=== PATIENT | male | born 1970 | race Caucasian/White ===

== ENCOUNTER 2020-08-01 08:04 | Emergency (ER) | payer MEDICARE ==
[~2020-08-01] VITALS: Ht 188 cm; Wt 127.2 kg
--- NOTE | 2020-08-01 08:20 | ED.ADGEN ---
Past Medical History Past Medical History: Diabetes-Type II General Adult EDM: Chief Complaint: NAUSEA/VOMITING/DIARRHEA HPI: HPI: Patient is a 49-year-old male who arrives ambulatory to the emergency department complaining of nausea and vomiting with occasional diarrhea. Patient states that this has been ongoing now for 3 days. Patient states he has a history of gastroparesis and these episodes are not uncommon for him. Patient states he is a difficulty moving food through his gut during this time and had numerous episodes of vomiting. Despite this the patient denies any fevers. He further denies any abdominal pain without vomiting. Additionally he denies any history of cough, shortness of air or chest pain. He is awake, alert and uncomfortable appearing. Review of Systems: Review of Systems: Constitutional: Denies fever or chills. [] Eyes: Denies change in visual acuity. [] HENT: Denies nasal congestion or sore throat. [] Respiratory: Denies cough or shortness of breath. [] Cardiovascular: Denies chest pain or edema. [] GI: Reports nausea with vomiting. Denies abdominal pain, diarrhea, bloody sto ols. [] : Denies dysuria. [] Musculoskeletal: Denies back pain or joint pain. [] Integument: Denies rash. [] Neurologic: Denies headache, focal weakness or sensory changes. [] Endocrine: Denies polyuria or polydipsia. [] Lymphatic: Denies swollen glands. [] Psychiatric: Denies depression or anxiety. [] Family History: Family History: Noncontributory Current Medications: Current Medications Medications (Trade) Dose Ordered Sig/Cr Start Time Stop Time Status Last Admin Dose Admin Diphenhydramine HCl (Benadryl) 50 mg 1X ONCE 08/01/20 08:30 08/01/20 08:31 DC 08/01/20 08:33 50 MG Metoclopramide HCl (Reglan Vial) 10 mg 1X ONCE 08/01/20 08:30 08/01/20 08:31 DC 08/01/20 08:36 10 MG Pantoprazole Sodium (PROTONIX VIAL for IV PUSH) 40 mg 1X ONCE 08/01/20 08:30 08/01/20 08:31 DC 08/01/20 08:40 40 MG Sodium Chloride 1,000 ml @ 1,000 mls/hr 1X ONCE 08/01/20 08:30 08/01/20 09:29 DC 08/01/20 08:32 1,000 MLS/HR Allergies: Allergies: Allergies Coded Allergies Type Severity Reaction Last Updated Verified aspirin Allergy Severe STOMACH BLEEDING 08/01/20 Yes Physical Exam: PE: Constitutional: Uncomfortable appearing and morbidly obese. Well developed, well nourished, non-toxic appearance. [] HENT: Normocephalic, atraumatic, bilateral external ears normal, oropharynx moist, no oral exudates, nose normal. [] Eyes: PERRLA, EOMI, conjunctiva normal, no discharge. [] Neck: Normal range of motion, no tenderness, supple, no stridor. [] Cardiovascular:Heart rate regular rhythm, no murmur [] Lungs & Thorax: Bilateral breath sounds clear to auscultation [] Abdomen: Bowel sounds normal, soft, no tenderness, no masses, no pulsatile masses. [] Skin: Warm, dry, no erythema, no rash. [] Back: No tenderness, no CVA tenderness. [] Extremities: No tenderness, no cyanosis, no clubbing, ROM intact, no edema. [] Neurologic: Alert and oriented X 3, normal motor function, normal sensory function, no focal deficits noted. [] Psychologic: Affect normal, judgement normal, mood normal. [] Current Patient Data: Labs: Laboratory Tests Test 08/01/20 08:25 White Blood Count 17.3 x10^3/uL (4.0-11.0) H Red Blood Count 5.21 x10^6/uL (4.30-5.70) Hemoglobin 15.3 g/dL (13.0-17.5) Hematocrit 43.4 % (39.0-53.0) Mean Corpuscular Volume 83 fL (79-100) Mean Corpuscular Hemoglobin 29 pg (25-35) Mean Corpuscular Hemoglobin Concent 35 g/dL (31-37) Red Cell Distribution Width 13.5 % (11.5-14.5) Platelet Count 300 x10^3/uL (140-400) Neutrophils (%) (Auto) 88 % (31-73) H Lymphocytes (%) (Auto) 6 % (24-48) L Monocytes (%) (Auto) 6 % (0-9) Eosinophils (%) (Auto) 0 % (0-3) Basophils (%) (Auto) 1 % (0-3) Neutrophils # (Auto) 15.1 x10^3/uL (1.8-7.7) H Lymphocytes # (Auto) 1.0 x10^3/uL (1.0-4.8) Monocytes # (Auto) 1.1 x10^3/uL (0.0-1.1) Eosinophils # (Auto) 0.0 x10^3/uL (0.0-0.7) Basophils # (Auto) 0.1 x10^3/uL (0.0-0.2) Platelet Estimate Pending Sodium Level 139 mmol/L (136-145) Potassium Level 3.8 mmol/L (3.5-5.1) Chloride Level 100 mmol/L (98-107) Carbon Dioxide Level 24 mmol/L (21-32) Anion Gap 15 (6-14) H Blood Urea Nitrogen 21 mg/dL (8-26) Creatinine 1.0 mg/dL (0.7-1.3) Estimated GFR (Cockcroft-Gault) 78.8 BUN/Creatinine Ratio 21 (6-20) H Glucose Level 290 mg/dL (70-99) H Calcium Level 9.0 mg/dL (8.5-10.1) Total Bilirubin 1.1 mg/dL (0.2-1.0) H Aspartate Amino Transferase (AST) 46 U/L (15-37) H Alanine Aminotransferase (ALT) 47 U/L (16-63) Alkaline Phosphatase 90 U/L (46-116) Total Protein 7.8 g/dL (6.4-8.2) Albumin 4.5 g/dL (3.4-5.0) Albumin/Globulin Ratio 1.4 (1.0-1.7) Lipase 56 U/L (73-393) L Laboratory Tests 08/01/20 08:25 Laboratory Tests 08/01/20 08:25 Vital Signs: Vital Signs Date Time Temp Pulse Resp B/P (MAP) Pulse Ox O2 Delivery O2 Flow Rate FiO2 08/01/20 08:19 99.0 103 20 184/97 (126) 96 Room Air 99.0 EKG: EKG: [] Heart Score: C/O Chest Pain: No Risk Factors: Risk Factors: DM, Current or recent (<one month) smoker, HTN, HLP, family history of CAD, obesity. Risk Scores: Score 0 - 3: 2.5% MACE over next 6 weeks - Discharge Home Score 4 - 6: 20.3% MACE over next 6 weeks - Admit for Clinical Observation Score 7 - 10: 72.7% MACE over next 6 weeks - Early Invasive Strategies Radiology/Procedures: Radiology/Procedures: [] Course & Med Decision Making: Course & Med Decision Making Pertinent Labs and Imaging studies reviewed. (See chart for details) [] Dragon Disclaimer: Dragon Disclaimer: This electronic medical record was generated, in whole or in part, using a voice recognition dictation system. Departure Departure Impression: Primary Impression: History of diabetic gastroparesis Additional Impressions: Acute prerenal azotemia Hyperglycemia due to diabetes mellitus Nausea and vomiting Disposition: 01 HOME / SELF CARE / HOMELESS Condition: IMPROVED Patient Instructions: Dehydration, Adult, Gastroparesis, Nausea and Vomiting Additional Instructions: The patient is awake, alert and in no acute distress. The patient reports he is feeling much better and desires discharge. I did offer him another liter fluid given his acute dehydration however he states he believes he can go home and to lerate fluids. I advised him to return with any fevers, new pain or intractable vomiting/diarrhea. The patient understands and has agreed to return as needed. He is nontoxic-appearing and resting comfortably now. He is stable for discharge. Problem Qualifiers BRANDY DACOSTA DO Aug 01, 2020 08:20
[2020-08-01] MEDS: IV NORMAL SALINE 1000ML BAG 1,000 ML IV ONE (08:32)
[2020-08-01] MEDS: diphenhydrAMINE 50 MG/ML VIAL IVP ONE (08:33)
[2020-08-01] MEDS: METOCLOPRAMIDE HCL 10 MG/2 ML VIAL. IVP ONE (08:36)
[2020-08-01] MEDS: PANTOPRAZOLE IV PUSH 40 MG VIAL. IVP ONE (08:40)
[2020-08-01 08:42] LABS: BASO # 0.1 x10^3/uL (0.0-0.2); BASO % 1 % (0-3); EOS % 0 % (0-3); HEMATOCRIT 43.4 % (39.0-53.0); HEMOGLOBIN 15.3 g/dL (13.0-17.5); LYMPH % 6 % (24-48); MEAN CORPUSCULAR HEMOGLOBIN 29 pg (25-35); MEAN CORPUSCULAR HGB CONC 35 g/dL (31-37); MEAN CORPUSCULAR VOLUME 83 fL (79-100); MONO # 1.1 x10^3/uL (0.0-1.1); MONO % 6 % (0-9); NEUT # 15.1 x10^3/uL (1.8-7.7); NEUT % 88 % (31-73); PLATELET COUNT 300 x10^3/uL (140-400); RED BLOOD COUNT 5.21 x10^6/uL (4.30-5.70); RED CELL DISTRIBUTION WIDTH 13.5 % (11.5-14.5); WHITE BLOOD COUNT 17.3 x10^3/uL (4.0-11.0)
[2020-08-01 08:45] LABS: GFR 78.8; POTASSIUM 3.8 mmol/L (3.5-5.1)
[2020-08-01 08:51] LABS: ALBUMIN 4.5 g/dL (3.4-5.0); ALBUMIN/GLOBULIN RATIO 1.4 (1.0-1.7); TOTAL BILIRUBIN 1.1 mg/dL (0.2-1.0); TOTAL PROTEIN 7.8 g/dL (6.4-8.2)
[2020-08-01 09:16] VITALS: BP 157/78
[2020-08-01 12:58] LABS: % ATYL 1 % (0-0); % BANDS 1 % (0-9); % LYMPHS 6 % (24-48); % MONOS 6 % (0-10); % SEGS 86 % (35-66); PLT ESTIMATE ADEQUATE (ADEQUATE)
[2020-08-02] MEDS ORDERED: METO5TAB55 PO (07:26)
[2020-08-02] MEDS ORDERED: DIPH25CA58 PO (07:26)
[2020-08-02] MEDS ORDERED: GLIP5TAB10 PO (07:26)
== END 2020-08-01 09:56 | disposition home or self-care (01) ==
LOC: ER 08:04
DX: E11.43 Type 2 diabetes mellitus with diabetic autonomic (poly)neuropathy (principal); K31.84 Gastroparesis; E11.65 Type 2 diabetes mellitus with hyperglycemia; R79.89 Other specified abnormal findings of blood chemistry; R11.2 Nausea with vomiting, unspecified
CPT/HCPCS: 36415; 80053; 83690; 85007; 85025; 96361; 96374; 96375; 99284; C9113; J1200; J2765; J7030

== ENCOUNTER 2020-08-01 18:22 | Inpatient (IN) | payer MEDICARE ==
[~2020-08-01] VITALS: Ht 193 cm; Wt 133.2 kg
[2020-08-01] MEDS ORDERED: PANTOPRAZOLE IV PUSH 40 MG VIAL. IVP ONE (19:15)
[2020-08-01] MEDS ORDERED: IV NORMAL SALINE 1000ML BAG 1,000 ML IV ONE ×2 (19:15→22:00)
[2020-08-01] MEDS ORDERED: METOCLOPRAMIDE HCL 10 MG/2 ML VIAL. IVP ONE (19:15)
[2020-08-01] MEDS ORDERED: diphenhydrAMINE 50 MG/ML VIAL IVP ONE (19:15)
[2020-08-01 19:18] LABS: BASO % 0 % (0-3); EOS % 0 % (0-3); HEMATOCRIT 42.7 % (39.0-53.0); LYMPH # 1.3 x10^3/uL (1.0-4.8); LYMPH % 8 % (24-48); MEAN CORPUSCULAR HEMOGLOBIN 29 pg (25-35); MEAN CORPUSCULAR HGB CONC 35 g/dL (31-37); MEAN CORPUSCULAR VOLUME 83 fL (79-100); MONO # 1.2 x10^3/uL (0.0-1.1); MONO % 8 % (0-9); NEUT % 85 % (31-73); PLATELET COUNT 305 x10^3/uL (140-400); RED BLOOD COUNT 5.14 x10^6/uL (4.30-5.70); RED CELL DISTRIBUTION WIDTH 13.8 % (11.5-14.5); WHITE BLOOD COUNT 16.5 x10^3/uL (4.0-11.0)
[2020-08-01 19:29] LABS: CALCIUM 8.9 mg/dL (8.5-10.1); CREATININE 1.1 mg/dL (0.7-1.3); GFR 70.6; POTASSIUM 3.7 mmol/L (3.5-5.1)
[2020-08-01 19:35] LABS: ALBUMIN 4.4 g/dL (3.4-5.0); ALBUMIN/GLOBULIN RATIO 1.3 (1.0-1.7); TOTAL PROTEIN 7.7 g/dL (6.4-8.2)
--- NOTE | 2020-08-01 21:23 | PHYS DOC ---
Past Medical History Past Medical History: Diabetes-Type II Additional Past Medical Histor: GASTROPORESIS Past Surgical History: Cholecystectomy Smoking Status: Never Smoker Alcohol Use: None General Adult EDM: Chief Complaint: NAUSEA/VOMITING/DIARRHEA HPI: HPI: Patient is a 49 year old male with past medical history of gastroparesis presents with a chief complaint of nausea vomiting and abdominal discomfort. Patient states onset of symptoms 3 days ago. Patient states he is unable to keep any fluids or his medications down. Patient was evaluated and discharge from this emergency department earlier today. Review of Systems: Review of Systems: Review of systems: Constitutional symptoms- No fever, no chills. Eyes- No Discharge, No Visual Loss Respiratory symptoms- No shortness of breath, No wheezing, No Dyspnea on Exertion Cardiovascular Systems; No chest pain, No Palpitations, No syncope Gastrointestinal symptoms: Positive abdominal pain, Positive nausea, Positive vomiting no diarrhea. Genitourinary symptoms: No dysuria. Musculoskeletal symptoms: No back pain No extremity pain. NEUROLOGICAL Symptoms: No headache, no generalized weakness; No focal Weakness Heart Score: C/O Chest Pain: N/A Risk Factors: Risk Factors: DM, Current or recent (<one month) smoker, HTN, HLP, family history of CAD, obesity. Risk Scores: Score 0 - 3: 2.5% MACE over next 6 weeks - Discharge Home Score 4 - 6: 20.3% MACE over next 6 weeks - Admit for Clinical Observation Score 7 - 10: 72.7% MACE over next 6 weeks - Early Invasive Strategies Current Medications: Current Medications Medications (Trade) Dose Ordered Sig/Cr Start Time Stop Time Status Last Admin Dose Admin Diphenhydramine HCl (Benadryl) 50 mg 1X ONCE 08/01/20 19:15 08/01/20 19:16 DC 08/01/20 19:23 50 MG Metoclopramide HCl (Reglan Vial) 10 mg 1X ONCE 08/01/20 19:15 08/01/20 19:16 DC 08/01/20 19:23 10 MG Pantoprazole Sodium (PROTONIX VIAL for IV PUSH) 40 mg 1X ONCE 08/01/20 19:15 08/01/20 19:16 DC 08/01/20 19:23 40 MG Sodium Chloride 1,000 ml @ 1,000 mls/hr 1X ONCE 08/01/20 19:15 08/01/20 20:14 DC 08/01/20 19:21 1,000 MLS/HR Allergies: Allergies: Allergies Coded Allergies Type Severity Reaction Last Updated Verified aspirin Allergy Severe STOMACH BLEEDING 08/01/20 Yes Physical Exam: PE: General: alert, no acute distress. Skin: warm, dry and intact. Head:: Normocephalic, atraumatic. Neck: Trachea midline. Eyes: EOMI, Normal conjunctiva, No drainage CARDIOVASCULAR: Regular rate and rhythm RESPIRATORY: No respiratory distress Back: Full range of motion. MUSCULOSKELETAL: Full range of motion of bilateral upper and lower extremities. GASTROINTESTINAL: Abdomen soft without rebound or guarding. NEUROLOGICAL: Alert and noted to person, place and time. No neurological deficits observed Psychiatric: Cooperative. Normal judgment Current Patient Data: Labs: Laboratory Tests Test 08/01/20 18:40 White Blood Count 16.5 x10^3/uL (4.0-11.0) H Red Blood Count 5.14 x10^6/uL (4.30-5.70) Hemoglobin 15.0 g/dL (13.0-17.5) Hematocrit 42.7 % (39.0-53.0) Mean Corpuscular Volume 83 fL (79-100) Mean Corpuscular Hemoglobin 29 pg (25-35) Mean Corpuscular Hemoglobin Concent 35 g/dL (31-37) Red Cell Distribution Width 13.8 % (11.5-14.5) Platelet Count 305 x10^3/uL (140-400) Neutrophils (%) (Auto) 85 % (31-73) H Lymphocytes (%) (Auto) 8 % (24-48) L Monocytes (%) (Auto) 8 % (0-9) Eosinophils (%) (Auto) 0 % (0-3) Basophils (%) (Auto) 0 % (0-3) Neutrophils # (Auto) 14.0 x10^3/uL (1.8-7.7) H Lymphocytes # (Auto) 1.3 x10^3/uL (1.0-4.8) Monocytes # (Auto) 1.2 x10^3/uL (0.0-1.1) H Eosinophils # (Auto) 0.0 x10^3/uL (0.0-0.7) Basophils # (Auto) 0.0 x10^3/uL (0.0-0.2) Sodium Level 141 mmol/L (136-145) Potassium Level 3.7 mmol/L (3.5-5.1) Chloride Level 101 mmol/L (98-107) Carbon Dioxide Level 27 mmol/L (21-32) Anion Gap 13 (6-14) Blood Urea Nitrogen 19 mg/dL (8-26) Creatinine 1.1 mg/dL (0.7-1.3) Estimated GFR (Cockcroft-Gault) 70.6 BUN/Creatinine Ratio 17 (6-20) Glucose Level 255 mg/dL (70-99) H Calcium Level 8.9 mg/dL (8.5-10.1) Total Bilirubin 1.0 mg/dL (0.2-1.0) Aspartate Amino Transferase (AST) 52 U/L (15-37) H Alanine Aminotransferase (ALT) 51 U/L (16-63) Alkaline Phosphatase 86 U/L (46-116) Total Protein 7.7 g/dL (6.4-8.2) Albumin 4.4 g/dL (3.4-5.0) Albumin/Globulin Ratio 1.3 (1.0-1.7) Lipase 61 U/L (73-393) L Laboratory Tests 08/01/20 18:40 Laboratory Tests 08/01/20 18:40 Vital Signs: Vital Signs Date Time Temp Pulse Resp B/P (MAP) Pulse Ox O2 Delivery O2 Flow Rate FiO2 08/01/20 19:23 99.6 98 18 150/80 (103) 97 Room Air 99.6 EKG: EKG: [] Radiology/Procedures: Radiology/Procedures: [] Course & Med Decision Making: Course & Med Decision Making Pertinent Labs and Imaging studies reviewed. (See chart for details) [] Treatment included Reglan Benadryl IV fluids. Patient was admitted to hospital for further evaluation and treatment. Dragon Disclaimer: Dragon Disclaimer: This electronic medical record was generated, in whole or in part, using a voice recognition dictation system. Departure Departure Impression: Primary Impression: Gastroparesis Additional Impression: Nausea & vomiting Disposition: ADMITTED INPATIENT Admitting Physician: SARAH Condition: STABLE Referrals: UNKNOWN PCP NAME (PCP) KALYAN SOMMER DO Aug 01, 2020 21:23
[2020-08-01] MEDS ORDERED: ONDANSETRON PF 4 MG/2 ML VIAL. IV PRN (21:30)
[2020-08-01 22:15] VITALS: BP 157/85
[2020-08-01] MEDS: MORPHINE SULFATE 2 MG/ML VIAL. IV PRN (22:29)
[2020-08-01 23:00] VITALS: BP 166/86
--- NOTE | 2020-08-01 23:00 | NUR ---
ADMIT NOTE: RECEIVED PT FROM ED , UPON ARRIVAL TO UNIT PT AMBULATED FROM GURNEY TO BED . PT C/O PAIN AND REQUESTING REGLAN AND BENADRYL. DATA BASE COMPLETED AND ASSESSMENT COMPLETED. DISCUSSED PLAN OF CARE , PT VERBALIZED UNDERSTANDING AND AGREEABLE
[2020-08-02] MEDS: MORPHINE SULFATE 2 MG/ML VIAL. IV PRN ×6 (00:23→17:03)
[2020-08-02] MEDS: METOCLOPRAMIDE HCL 10 MG/2 ML VIAL. IVP PRN ×2 (01:54→07:38)
[2020-08-02 03:00] VITALS: BP 172/67
[2020-08-02] MEDS: diphenhydrAMINE 50 MG/ML VIAL IVP PRN ×3 (03:33→19:52)
[2020-08-02] MEDS ORDERED: METO5TAB55 PO (07:26)
[2020-08-02] MEDS ORDERED: GLIP5TAB10 PO (07:26)
[2020-08-02] MEDS ORDERED: DIPH25CA58 PO (07:26)
[2020-08-02 07:47] VITALS: BP 166/73
--- NOTE | 2020-08-02 09:21 | PDOC1 ---
History and Physical Date of Service: DOS: DATE: 08/02/20 TIME: 09:20 History of Present Illness: HPI: 49 year old male with past medical history of gastroparesis presents with a chief complaint of nausea vomiting and abdominal discomfort. Patient states onset of symptoms 3 days ago. Patient states he is unable to keep any fluids or his medications down. Patient was evaluated and discharge from this emergency department earlier today. Past Medical/Surgical History: PMH/PSH: Past Medical History: Diabetes-Type II, GASTROPORESIS Past Surgical History: Cholecystectomy Allergies: Allergies: Coded Allergies: aspirin (Verified Allergy, Severe, STOMACH BLEEDING, 08/01/20) Family History: Family History: Reviewed with no relevant findings Social History: Social History: Smoking Status: Never Smoker Alcohol Use: None Current Medications: Current Medications Current Medications Sodium Chloride 1,000 ml @ 1,000 mls/hr 1X ONCE IV Last administered on 08/01/20at 19:21; Start 08/01/20 at 19:15; Stop 08/01/20 at 20:14; Status DC Metoclopramide HCl (Reglan Vial) 10 mg 1X ONCE IVP Last administered on 08/01/20at 19:23; Start 08/01/20 at 19:15; Stop 08/01/20 at 19:16; Status DC Diphenhydramine HCl (Benadryl) 50 mg 1X ONCE IVP Last administered on 08/01/20at 19:23; Start 08/01/20 at 19:15; Stop 08/01/20 at 19:16; Status DC Pantoprazole Sodium (PROTONIX VIAL for IV PUSH) 40 mg 1X ONCE IVP Last administered on 08/01/20at 19:23; Start 08/01/20 at 19:15; Stop 08/01/20 at 19:16; Status DC Ondansetron HCl (Zofran) 4 mg PRN Q8HRS PRN IV NAUSEA/VOMITING 1ST CHOICE Last administered on 08/02/20at 06:08; Start 08/01/20 at 21:30; Stop 08/02/20 at 21:29 Morphine Sulfate (Morphine Sulfate) 2 mg PRN Q2HR PRN IV SEVERE PAIN 7-10 Last administered on 08/02/20at 06:04; Start 08/01/20 at 21:30; Stop 08/02/20 at 21:29 Sodium Chloride 1,000 ml @ 1,000 mls/hr 1X ONCE IV Last administered on 08/01/20at 22:01; Start 08/01/20 at 22:00; Stop 08/01/20 at 22:59; Status DC Metoclopramide HCl (Reglan Vial) 10 mg PRN Q6HRS PRN IVP NAUSEA/VOMITING 2ND CHOICE Last administered on 08/02/20at 07:38; Start 08/01/20 at 23:00 Diphenhydramine HCl (Benadryl) 25 mg PRN Q8HRS PRN IVP ITCHING Last administered on 08/02/20at 03:33; Start 08/01/20 at 23:00 Active Scripts Active Reported Glipizide 5 Mg Tablet 1 Tab PO BID Benadryl (Diphenhydramine Hcl) 25 Mg Capsule 2 Cap PO PRN PRN 30 Days Reglan (Metoclopramide Hcl) 5 Mg Tablet 5 Mg PO QIDACHS ROS: Review of Systems Review of System REVIEW OF SYSTEMS: GENERAL: Denies weakness SKIN: No bruising, hair changes or rashes. EYES: No blurred, double or loss of vision. NOSE AND THROAT: No history of nosebleeds, hoarseness or sore throat. HEART: No history of palpitations, chest pain or shortness of breath on exertion. LUNGS: Denies cough, hemoptysis, wheezing or shortness of breath. GASTROINTESTINAL: Denies changes in appetite, nausea, vomiting, diarrhea or constipation. GENITOURINARY: No history of frequency, urgency, hesitancy or nocturia. NEUROLOGIC: Denies history of numbness, tingling, or tremor. PSYCHIATRIC: No history of panic, anxiety or depression. ENDOCRINE: No history of heat or cold intolerance, polyuria or polydipsia. EXTREMITIES: Denies joint pain, pain on walking or stiffness. Physical Exam: Vital Signs: Vital Signs Date Time Temp Pulse Resp B/P (MAP) Pulse Ox O2 Delivery O2 Flow Rate FiO2 08/02/20 07:47 98.9 92 18 166/73 (104) 95 Room Air 98.9 Physcial Exam: GEN: No apparent distress. Alert and oriented HEENT: Normal cephalic, atraumatic, external auditory canals are patent EYES: Extraocular muscles are intact, pupil are equally round and reactive to light and accommodation MUSCULOSKELETAL: Well developed , well nourished, good range of motion ENDOCRINE: No thyromegaly was palpated LYMPHATICS: No cervical chain or axillary nodes were noted HEMATOPOIETIC: No bruising NECK: Supple, no JVD, no thyromegaly was noted LUNGS: Clear to auscultation in all lung colby without rhonchi or wheezing HEART: RRR, S!, S2 present. Peripheral pulses intact, no obvious murmurs noted ABDOMEN: Soft, nontender. Positive bowel sounds, no organomegaly, normal bowel sounds EXTREMITIES: Without clubbing, cyanosis, or edema. Pedal pulses intact. Negative Homans sign NEUROLOGIC: Normal speech and tone. A&O x 3, moves all extremities, no obvious focal deficits PSYCHIATRIC: Normal affect, normal mood. Stable SKIN: No ulcerations or rashes, good skin turgor, no jaundice VASCULAR: Good capillary refill, neurovascular bundle appears to be intact Labs: Labs: Laboratory Tests Test 08/01/20 18:40 White Blood Count 16.5 x10^3/uL (4.0-11.0) Red Blood Count 5.14 x10^6/uL (4.30-5.70) Hemoglobin 15.0 g/dL (13.0-17.5) Hematocrit 42.7 % (39.0-53.0) Mean Corpuscular Volume 83 fL (79-100) Mean Corpuscular Hemoglobin 29 pg (25-35) Mean Corpuscular Hemoglobin Concent 35 g/dL (31-37) Red Cell Distribution Width 13.8 % (11.5-14.5) Platelet Count 305 x10^3/uL (140-400) Neutrophils (%) (Auto) 85 % (31-73) Lymphocytes (%) (Auto) 8 % (24-48) Monocytes (%) (Auto) 8 % (0-9) Eosinophils (%) (Auto) 0 % (0-3) Basophils (%) (Auto) 0 % (0-3) Neutrophils # (Auto) 14.0 x10^3/uL (1.8-7.7) Lymphocytes # (Auto) 1.3 x10^3/uL (1.0-4.8) Monocytes # (Auto) 1.2 x10^3/uL (0.0-1.1) Eosinophils # (Auto) 0.0 x10^3/uL (0.0-0.7) Basophils # (Auto) 0.0 x10^3/uL (0.0-0.2) Sodium Level 141 mmol/L (136-145) Potassium Level 3.7 mmol/L (3.5-5.1) Chloride Level 101 mmol/L (98-107) Carbon Dioxide Level 27 mmol/L (21-32) Anion Gap 13 (6-14) Blood Urea Nitrogen 19 mg/dL (8-26) Creatinine 1.1 mg/dL (0.7-1.3) Estimated GFR (Cockcroft-Gault) 70.6 BUN/Creatinine Ratio 17 (6-20) Glucose Level 255 mg/dL (70-99) Calcium Level 8.9 mg/dL (8.5-10.1) Total Bilirubin 1.0 mg/dL (0.2-1.0) Aspartate Amino Transf (AST/SGOT) 52 U/L (15-37) Alanine Aminotransferase (ALT/SGPT) 51 U/L (16-63) Alkaline Phosphatase 86 U/L (46-116) Total Protein 7.7 g/dL (6.4-8.2) Albumin 4.4 g/dL (3.4-5.0) Albumin/Globulin Ratio 1.3 (1.0-1.7) Lipase 61 U/L (73-393) Laboratory Tests Test 08/01/20 18:40 White Blood Count 16.5 x10^3/uL (4.0-11.0) Red Blood Count 5.14 x10^6/uL (4.30-5.70) Hemoglobin 15.0 g/dL (13.0-17.5) Hematocrit 42.7 % (39.0-53.0) Mean Corpuscular Volume 83 fL (79-100) Mean Corpuscular Hemoglobin 29 pg (25-35) Mean Corpuscular Hemoglobin Concent 35 g/dL (31-37) Red Cell Distribution Width 13.8 % (11.5-14.5) Platelet Count 305 x10^3/uL (140-400) Neutrophils (%) (Auto) 85 % (31-73) Lymphocytes (%) (Auto) 8 % (24-48) Monocytes (%) (Auto) 8 % (0-9) Eosinophils (%) (Auto) 0 % (0-3) Basophils (%) (Auto) 0 % (0-3) Neutrophils # (Auto) 14.0 x10^3/uL (1.8-7.7) Lymphocytes # (Auto) 1.3 x10^3/uL (1.0-4.8) Monocytes # (Auto) 1.2 x10^3/uL (0.0-1.1) Eosinophils # (Auto) 0.0 x10^3/uL (0.0-0.7) Basophils # (Auto) 0.0 x10^3/uL (0.0-0.2) Sodium Level 141 mmol/L (136-145) Potassium Level 3.7 mmol/L (3.5-5.1) Chloride Level 101 mmol/L (98-107) Carbon Dioxide Level 27 mmol/L (21-32) Anion Gap 13 (6-14) Blood Urea Nitrogen 19 mg/dL (8-26) Creatinine 1.1 mg/dL (0.7-1.3) Estimated GFR (Cockcroft-Gault) 70.6 BUN/Creatinine Ratio 17 (6-20) Glucose Level 255 mg/dL (70-99) Calcium Level 8.9 mg/dL (8.5-10.1) Total Bilirubin 1.0 mg/dL (0.2-1.0) Aspartate Amino Transf (AST/SGOT) 52 U/L (15-37) Alanine Aminotransferase (ALT/SGPT) 51 U/L (16-63) Alkaline Phosphatase 86 U/L (46-116) Total Protein 7.7 g/dL (6.4-8.2) Albumin 4.4 g/dL (3.4-5.0) Albumin/Globulin Ratio 1.3 (1.0-1.7) Lipase 61 U/L (73-393) Assessment/Plan Assessment/Plan Intractable nausea vomiting Hypertensive urgency Hyperglycemia Justifications for Admission Other Justification TOVA GARCIA MD Aug 02, 2020 09:21
[2020-08-02] MEDS ORDERED: SENNOSIDES 8.6 MG TABLET PO PRN (09:30)
[2020-08-02] MEDS ORDERED: DEXTROSE 50% 25 GM / 50ML DISP.SYRIN. IV PRN (09:30)
[2020-08-02] MEDS ORDERED: ACETAMINOPHEN 325 MG TABLET. PO PRN (09:30)
[2020-08-02] MEDS ORDERED: DOCUSATE SODIUM 100 MG CAPSULE. PO PRN (09:30)
[2020-08-02] MEDS: IV NORMAL SALINE 1000ML BAG 1,000 ML IV SCH ×2 (09:36→17:03)
[2020-08-02] MEDS: INSULIN LISPRO 300 UNITS/3 ML VIAL. SQ SCH ×2 (11:09→17:08)
[2020-08-02] MEDS: METOCLOPRAMIDE HCL 10 MG/2 ML VIAL. IVP SCH ×3 (11:32→19:52)
[2020-08-02 11:45] VITALS: BP 117/72
[2020-08-02 15:28] VITALS: BP 155/70
[2020-08-02] MEDS: ONDANSETRON PF 4 MG/2 ML VIAL. IVP PRN (17:30)
[2020-08-02 19:19] VITALS: BP 163/88
[2020-08-02] MEDS: INSULIN GLARGINE SYRINGE. SQ SCH (21:17)
[2020-08-02 23:12] VITALS: BP 160/86
[2020-08-03] MEDS: IV NORMAL SALINE 1000ML BAG 1,000 ML IV SCH ×3 (01:30→11:12)
[2020-08-03 03:00] VITALS: BP 151/69
[2020-08-03] MEDS: METOCLOPRAMIDE HCL 10 MG/2 ML VIAL. IVP SCH ×3 (06:10→22:20)
[2020-08-03] MEDS: diphenhydrAMINE 50 MG/ML VIAL IVP PRN ×2 (06:11→22:37)
[2020-08-03] MEDS: ONDANSETRON PF 4 MG/2 ML VIAL. IVP PRN ×2 (06:16→12:22)
[2020-08-03 07:00] VITALS: BP 188/94
[2020-08-03] MEDS: INSULIN LISPRO 300 UNITS/3 ML VIAL. SQ SCH ×3 (08:59→17:00)
[2020-08-03] MEDS: INSULIN GLARGINE SYRINGE. SQ SCH ×2 (08:59→22:22)
[2020-08-03 09:25] LABS: BASO % 0 % (0-3); EOS % 0 % (0-3); HEMATOCRIT 40.1 % (39.0-53.0); HEMOGLOBIN 14.2 g/dL (13.0-17.5); LYMPH # 1.8 x10^3/uL (1.0-4.8); LYMPH % 19 % (24-48); MEAN CORPUSCULAR HEMOGLOBIN 30 pg (25-35); MEAN CORPUSCULAR HGB CONC 35 g/dL (31-37); MEAN CORPUSCULAR VOLUME 83 fL (79-100); MONO # 0.9 x10^3/uL (0.0-1.1); MONO % 10 % (0-9); NEUT # 6.9 x10^3/uL (1.8-7.7); NEUT % 71 % (31-73); PLATELET COUNT 235 x10^3/uL (140-400); RED BLOOD COUNT 4.81 x10^6/uL (4.30-5.70); RED CELL DISTRIBUTION WIDTH 13.6 % (11.5-14.5); WHITE BLOOD COUNT 9.6 x10^3/uL (4.0-11.0)
[2020-08-03 09:50] LABS: CALCIUM 8.2 mg/dL (8.5-10.1); CREATININE 0.8 mg/dL (0.7-1.3); GFR 101.9; MAGNESIUM 2.3 mg/dL (1.8-2.4); PHOSPHORUS 3.5 mg/dL (2.6-4.7); POTASSIUM 3.4 mmol/L (3.5-5.1)
[2020-08-03 11:00] VITALS: BP 150/71
[2020-08-03] MEDS ORDERED: MAG HYDROX/ALUMINUM HYD/SIMETH 30 ML ORAL.SUSP PO PRN (11:00)
--- NOTE | 2020-08-03 11:35 | PDOC ---
[facility] PROGRESS NOTE Date of Service DOS: DATE: 08/03/20 TIME: 11:33 Chief Complaint Chief Complaint Intractable nausea vomiting Hypertensive urgency Hyperglycemia Advance diet as tolerated Continue IV fluids KUB Ambulation for DVT prophylaxis Protonix GI prophylaxis ADA diet Full code Discussed with RN and SW Disposition patient management above Surrogate decision maker is undesignated History of Present Illness History of Present Illness 49 year old male with past medical history of gastroparesis presents with a c hief complaint of nausea vomiting and abdominal discomfort. Patient states onset of symptoms 3 days ago. Patient states he is unable to keep any fluids or his medications down. Patient was evaluated and discharge from this emergency department earlier today. Vitals/I&O Vitals/I&O: Vital Signs Date Time Temp Pulse Resp B/P (MAP) Pulse Ox O2 Delivery O2 Flow Rate FiO2 08/03/20 11:00 97.8 85 18 150/71 (97) 95 Room Air 97.8 I & O 08/02/20 08/02/20 08/03/20 15:00 23:00 07:00 Intake Total 250 ml 120 ml 420 ml Balance 250 ml 120 ml 420 ml Physical Exam General: Alert, Oriented X3, Cooperative Heart: No murmurs Abdomen: No tenderness Extremities: No edema Skin: No significant lesion Labs Labs: Laboratory Tests Test 08/02/20 20:14 08/03/20 07:26 08/03/20 08:15 08/03/20 10:18 Glucose (Fingerstick) 156 mg/dL (70-99) 205 mg/dL (70-99) 185 mg/dL (70-99) White Blood Count 9.6 x10^3/uL (4.0-11.0) Red Blood Count 4.81 x10^6/uL (4.30-5.70) Hemoglobin 14.2 g/dL (13.0-17.5) Hematocrit 40.1 % (39.0-53.0) Mean Corpuscular Volume 83 fL (79-100) Mean Corpuscular Hemoglobin 30 pg (25-35) Mean Corpuscular Hemoglobin Concent 35 g/dL (31-37) Red Cell Distribution Width 13.6 % (11.5-14.5) Platelet Count 235 x10^3/uL (140-400) Neutrophils (%) (Auto) 71 % (31-73) Lymphocytes (%) (Auto) 19 % (24-48) Monocytes (%) (Auto) 10 % (0-9) Eosinophils (%) (Auto) 0 % (0-3) Basophils (%) (Auto) 0 % (0-3) Neutrophils # (Auto) 6.9 x10^3/uL (1.8-7.7) Lymphocytes # (Auto) 1.8 x10^3/uL (1.0-4.8) Monocytes # (Auto) 0.9 x10^3/uL (0.0-1.1) Eosinophils # (Auto) 0.0 x10^3/uL (0.0-0.7) Basophils # (Auto) 0.0 x10^3/uL (0.0-0.2) Sodium Level 142 mmol/L (136-145) Potassium Level 3.4 mmol/L (3.5-5.1) Chloride Level 106 mmol/L (98-107) Carbon Dioxide Level 27 mmol/L (21-32) Anion Gap 9 (6-14) Blood Urea Nitrogen 12 mg/dL (8-26) Creatinine 0.8 mg/dL (0.7-1.3) Estimated GFR (Cockcroft-Gault) 101.9 Glucose Level 199 mg/dL (70-99) Calcium Level 8.2 mg/dL (8.5-10.1) Phosphorus Level 3.5 mg/dL (2.6-4.7) Magnesium Level 2.3 mg/dL (1.8-2.4) Assessment and Plan Assessmemt and Plan Problems Medical Problems: (1) Gastroparesis Status: Acute (2) Nausea & vomiting Status: Acute Comment Review of Relevant I have reviewed the following items zonia (where applicable) has been applied. Medications: Current Medications Medications (Trade) Dose Ordered Sig/Cr Route PRN Reason Start Time Stop Time Status Last Admin Dose Admin Insulin Human Lispro (HumaLOG) 0-5 UNITS TIDWMEALS SQ 08/02/20 12:00 08/03/20 08:59 Insulin Glargine (Lantus Syringe) 10 unit BID SQ 08/02/20 21:00 08/03/20 08:59 Al Hydroxide/Mg Hydroxide (Mylanta Plus Xs) 30 ml PRN Q2HR PRN PO HEARTBURN / GAS 08/03/20 11:00 4/25/21 11:09 Justifications for Admission Other Justification Intractable nausea vomiting TOVA GARCIA MD Aug 03, 2020 11:35
--- NOTE | 2020-08-03 13:04 | NUR ---
Pt. c/o cramping and abd pain. Pt. states he can't take Tylenol as he cannot swallow it and keep it down. Pt is also asking when he can get his Protonix. Protonix is ordered to begin in the am. Dr. Roc torres.
--- NOTE | 2020-08-03 13:04 | NUR ---
Dr. Brian returned call, telephone orders received.
--- NOTE | 2020-08-03 13:18 | RAD ---
EXAM: Abdomen, single view. HISTORY: Pain. COMPARISON: None. FINDINGS: A frontal supine views of the abdomen are obtained. There are nonspecific air-filled dose o f bowel within the abdomen. There is no evidence of abnormal bowel dilatation or transition point to suggest obstruction. IMPRESSION: Nonobstructive bowel gas pattern. Electronically signed by: Grace Phipps MD (08/03/2020 1:16 PM) [id number]
[2020-08-03] MEDS: PANTOPRAZOLE IV PUSH 40 MG VIAL. IVP SCH (13:43)
[2020-08-03] MEDS: MORPHINE SULFATE 2 MG/ML VIAL. IV PRN ×2 (13:43→19:59)
[2020-08-03 14:53] VITALS: BP 155/70
[2020-08-03 19:25] VITALS: BP 198/100
[2020-08-03 23:26] VITALS: BP 173/79
[2020-08-04 02:20] LABS: HEMOGLOBIN A1C 7.6 % (4.8-5.6)
[2020-08-04 03:08] VITALS: BP 162/83
[2020-08-04] MEDS: PANTOPRAZOLE IV PUSH 40 MG VIAL. IVP SCH (06:15)
[2020-08-04] MEDS: METOCLOPRAMIDE HCL 10 MG/2 ML VIAL. IVP SCH ×3 (06:16→21:56)
[2020-08-04] MEDS: MORPHINE SULFATE 2 MG/ML VIAL. IV PRN (06:16)
[2020-08-04] MEDS: diphenhydrAMINE 50 MG/ML VIAL IVP PRN ×2 (06:19→21:58)
[2020-08-04 07:00] VITALS: BP 148/64
[2020-08-04] MEDS ORDERED: PANTOPRAZOLE IV PUSH 40 MG VIAL. IVP SCH (07:30)
[2020-08-04] MEDS: INSULIN LISPRO 300 UNITS/3 ML VIAL. SQ SCH ×3 (08:00→17:32)
[2020-08-04] MEDS: ONDANSETRON PF 4 MG/2 ML VIAL. IVP PRN ×2 (09:43→19:23)
[2020-08-04] MEDS: INSULIN GLARGINE SYRINGE. SQ SCH ×2 (10:04→22:01)
[2020-08-04 10:58] VITALS: BP 163/69
--- NOTE | 2020-08-04 11:10 | PDOC ---
[employer] PROGRESS NOTE Date of Service DOS: DATE: 08/04/20 TIME: 11:16 Chief Complaint Chief Complaint Intractable nausea vomiting Hypertensive urgency Hyperglycemia Advance diet as tolerated Continue IV fluids KUB Ambulation for DVT prophylaxis Protonix GI prophylaxis ADA diet Full code Discussed with RN and SW Disposition patient management above Surrogate decision maker is undesignated History of Present Illness History of Present Illness 08/04: Afebrile. Episode of vomiting overnight. States his diet was advanced, feels like food is sitting "like a brick" in his stomach. Continue with Protonix, Reglan, and Benadryl, as patient gets benefit from his medications. If no improvement will consult GI for further recommendations. 08/03: 49 year old male with past medical history of gastroparesis presents with a chief complaint of nausea vomiting and abdominal discomfort. Patient states onset of symptoms 3 days ago. Patient states he is unable to keep any fluids or his medications down. Patient was evaluated and discharge from this emergency department earlier today. Vitals/I&O Vitals/I&O: Vital Signs Date Time Temp Pulse Resp B/P (MAP) Pulse Ox O2 Delivery O2 Flow Rate FiO2 08/04/20 10:58 98.4 81 18 163/69 (100) 95 Room Air 98.4 I & O 08/03/20 08/03/20 08/04/20 14:52 22:52 06:52 Intake Total 210 ml 540 ml Balance 210 ml 540 ml Physical Exam General: Alert, Oriented X3, Cooperative Heart: No murmurs Lungs: Clear Abdomen: No tenderness Extremities: No edema Skin: No significant lesion Labs Labs: Laboratory Tests Test 08/03/20 16:07 08/03/20 21:10 08/04/20 07:29 08/04/20 10:50 Glucose (Fingerstick) 188 mg/dL (70-99) 187 mg/dL (70-99) 150 mg/dL (70-99) 203 mg/dL (70-99) Assessment and Plan Assessmemt and Plan Problems Medical Problems: (1) Gastroparesis Status: Acute (2) Nausea & vomiting Status: Acute Comment Review of Relevant I have reviewed the following items zonia (where applicable) has been applied. Medications: Current Medications Medications (Trade) Dose Ordered Sig/Cr Route PRN Reason Start Time Stop Time Status Last Admin Dose Admin Pantoprazole Sodium (PROTONIX VIAL for IV PUSH) 40 mg DAILYAC IVP 08/03/20 13:15 08/04/20 06:15 Morphine Sulfate (Morphine Sulfate) 2 mg PRN Q2HR PRN IV MODERATE TO SEVERE PAIN 08/03/20 13:15 08/04/20 06:16 Justifications for Admission Other Justification Intractable nausea vomiting PETER REILLY MD Aug 04, 2020 11:10
[2020-08-04] MEDS: IV NORMAL SALINE 1000ML BAG 1,000 ML IV SCH ×2 (11:27→20:10)
--- NOTE | 2020-08-04 13:06 | NUR ---
SW following. Discussed with RN, pt from home with brother, room air, ada diet, ad marcus. RN advised no SW needs at this time. SW will continue to follow.
[2020-08-04 15:00] VITALS: BP 147/64
[2020-08-04 19:05] VITALS: BP 164/90
[2020-08-04 23:01] VITALS: BP 144/66
[2020-08-05] MEDS: MORPHINE SULFATE 2 MG/ML VIAL. IV PRN ×5 (01:23→21:15)
[2020-08-05 03:06] VITALS: BP 162/90
[2020-08-05] MEDS: METOCLOPRAMIDE HCL 10 MG/2 ML VIAL. IVP SCH ×4 (06:03→21:02)
[2020-08-05] MEDS: diphenhydrAMINE 50 MG/ML VIAL IVP PRN ×2 (06:08→21:12)
[2020-08-05] MEDS: IV NORMAL SALINE 1000ML BAG 1,000 ML IV SCH ×2 (06:08→17:30)
[2020-08-05 07:00] VITALS: BP 154/72
[2020-08-05] MEDS: PANTOPRAZOLE IV PUSH 40 MG VIAL. IVP SCH ×2 (08:35→16:34)
--- NOTE | 2020-08-05 08:52 | PDOC ---
[employer] [facility] PROGRESS NOTE Date of Service DOS: DATE: 08/05/20 TIME: 08:51 Chief Complaint Chief Complaint Intractable nausea vomiting Hypertensive urgency Hyperglycemia Advance diet as tolerated Continue IV fluids KUB Ambulation for DVT prophylaxis Protonix GI prophylaxis ADA diet Full code Discussed with RN and SW Disposition patient management above Surrogate decision maker is undesignated History of Present Illness History of Present Illness 08/05: Afebrile. Still with nausea and vomiting this morning. Had breakfast t christophe consisting of pancakes and sausage. Will change diet to NPO at this time. Continue with Protonix, Reglan, and Benadryl. Will consult GI for further recommendations. Continue to monitor inpatient and provide supportive care. 08/04: Afebrile. Episode of vomiting overnight. States his diet was advanced, feels like food is sitting "like a brick" in his stomach. Continue with Protonix, Reglan, and Benadryl, as patient gets benefit from his medications. If no improvement will consult GI for further recommendations. 08/03: 49 year old male with past medical history of gastroparesis presents with a chief complaint of nausea vomiting and abdominal discomfort. Patient states onset of symptoms 3 days ago. Patient states he is unable to keep any fluids or his medications down. Patient was evaluated and discharge from this emergency department earlier today. Vitals/I&O Vitals/I&O: Vital Signs Date Time Temp Pulse Resp B/P (MAP) Pulse Ox O2 Delivery O2 Flow Rate FiO2 08/05/20 07:00 97.9 77 17 154/72 (99) 95 Room Air 97.9 I & O 08/04/20 08/04/20 08/05/20 15:00 23:00 07:00 Intake Total 440 ml 2520 ml Balance 440 ml 2520 ml Physical Exam General: Alert, Oriented X3, Cooperative Heart: No murmurs Lungs: Clear Abdomen: No tenderness Extremities: No edema Skin: No significant lesion Labs Labs: Laboratory Tests Test 08/04/20 10:50 08/04/20 16:32 08/04/20 21:18 08/05/20 07:41 Glucose (Fingerstick) 203 mg/dL (70-99) 240 mg/dL (70-99) 178 mg/dL (70-99) 183 mg/dL (70-99) Assessment and Plan Assessmemt and Plan Problems Medical Problems: (1) Gastroparesis Status: Acute (2) Nausea & vomiting Status: Acute Comment Review of Relevant I have reviewed the following items zonia (where applicable) has been applied. Justifications for Admission Other Justification Intractable nausea vomiting PETER REILLY MD Aug 05, 2020 08:52
[2020-08-05] MEDS: ONDANSETRON PF 4 MG/2 ML VIAL. IVP PRN (09:31)
[2020-08-05] MEDS: INSULIN GLARGINE SYRINGE. SQ SCH ×2 (09:36→21:09)
[2020-08-05] MEDS: INSULIN LISPRO 300 UNITS/3 ML VIAL. SQ SCH ×3 (09:36→17:00)
--- NOTE | 2020-08-05 10:15 | NUR ---
SW following. Discussed with RN, pt from home with brother, room air, ada diet, ad marcus. RN advised no SW needs at this time, anticipates discharge home today. SW will continue to follow.
[2020-08-05 11:00] VITALS: BP 154/71
[2020-08-05 15:00] VITALS: BP 183/97
--- NOTE | 2020-08-05 15:52 | PDOC2 ---
GI CONSULT Date of Service: DATE: 08/05/20 TIME: 15:37 Reason For Consult: gastroparesis HPI: HPI: 49 y/o male admitted through ER on 08/01 (came twice that day). H/o gastroparesis diagnosed w/ GES at [facility] several years ago. Also had EGD and "they tried the pill sensor test but it didn't work." Takes Reglan 10mg QID ("with food") and Protonix 40mg BID at home. (Reglan dose on summary list is 5mg.) Still has a rough time in the mornings - usually drinks a little milk and if that goes okay then he has some cottage cheese. Typically better by about 5:00 p.m. and able to eat a regular dinner. Also reports epigastric discomfort and early satiety. Has flare symptoms (like current issues) about twice yearly - no precipitating events. Diabetic on glyburide (for years), A1c is 7.6. Says diabetic control is "not the greatest but not the worst." H/o GERD. No dysphagia. No hematemesis, hematochezia, or melena. Has gained weight. H/o constipation somewhat improved w/ Miralax - last stooled ("small bit") yesterday. "I can't remember" if ever had a colonoscopy. S/p cholecystectomy (done because "nothing else was working"). No pancreas, liver, or PUD history. No NSAIDs. Vomited earlier today prompting this consult. Has been on IV Reglan TID (doesn't look like related to meals) + IV PPI + IV Benadryl. Also gets morphine. PMH: PMH: DM, asthma, gastroparesis toe amputation, cholecystectomy FH: Family History: No pertinent hx Social History: Smoke: No ALCOHOL: none Drugs: None ROS: GEN: Denies fevers, chills, sweats HEENT: Denies blurred vision, sore throat CV: Denies chest pain RESP: Denies shortness of air, cough GI: Per HPI : Denies hematuria, dysuria ENDO: +weight gain NEURO: Denies confusion, dizziness MSK: Denies weakness, joint pain/swelling SKIN: Denies jaundice, pruritus Vitals: Vitals: Vital Signs Date Time Temp Pulse Resp B/P (MAP) Pulse Ox O2 Delivery O2 Flow Rate FiO2 08/05/20 14:10 Room Air 08/05/20 11:00 98.4 77 16 154/71 (98) 95 98.4 Labs: Labs: Laboratory Tests Test 08/04/20 16:32 08/04/20 21:18 08/05/20 07:41 Glucose (Fingerstick) 240 mg/dL (70-99) 178 mg/dL (70-99) 183 mg/dL (70-99) Allergies: Coded Allergies: aspirin (Verified Allergy, Severe, STOMACH BLEEDING, 08/01/20) Imaging: Imaging: KUB 08/03 IMPRESSION: Nonobstructive bowel gas pattern. PE: GEN: NAD - was asleep HEENT: Atraumatic, PERRL LUNGS: CTAB HEART: RRR ABD: NABS, S/ND, mildly tender epigastrium EXTREMITY: No edema SKIN: No rashes, no jaundice NEURO/PSYCH: A & O 3, fairly flat affect A/P: A/P: N/v, upper abd discomfort DM, gastroparesis, GERD CRC screen - none? H/o constipation S/p cholecystectomy -- Gastroparesis flare w/ previous workup at [facility]. Gastroparesis is difficult to treat - no ideal long-term medication. Optimize control of DM, follow gastroparesis diet. D/w Dr. Rodriguez - continue current medications for now. I will adjust Reglan dosing - before meals and before bed. Will also increase PPI to BID (like he takes at home). Try clears, then slowly advance diet as tolerated. Could consider trial of e-mycin, interval imaging, etc. Morphine probably doesn't help n/v - defer pain control to primary. Resume Miralax for constipation, consider additional treatment if indicated. JULISSA GERARD Aug 05, 2020 15:52
[2020-08-05] MEDS ORDERED: BISACODYL 5 MG TABLET.DR. PO ONE (16:00)
[2020-08-05 19:25] VITALS: BP 180/76
[2020-08-05 23:50] VITALS: BP 156/71
[2020-08-06] MEDS: MORPHINE SULFATE 2 MG/ML VIAL. IV PRN ×3 (01:31→21:35)
[2020-08-06] MEDS: IV NORMAL SALINE 1000ML BAG 1,000 ML IV SCH ×2 (02:45→11:55)
[2020-08-06 03:41] VITALS: BP 159/77
[2020-08-06 07:00] VITALS: BP 187/81
[2020-08-06 07:45] LABS: HEMATOCRIT 45.8 % (39.0-53.0); HEMOGLOBIN 16.4 g/dL (13.0-17.5); RED BLOOD COUNT 5.47 x10^6/uL (4.30-5.70); RED CELL DISTRIBUTION WIDTH 13.9 % (11.5-14.5); WHITE BLOOD COUNT 15.6 x10^3/uL (4.0-11.0)
[2020-08-06] MEDS: INSULIN LISPRO 300 UNITS/3 ML VIAL. SQ SCH ×3 (08:00→17:00)
[2020-08-06 08:37] LABS: CALCIUM 8.9 mg/dL (8.5-10.1); CREATININE 0.8 mg/dL (0.7-1.3); GFR 101.9; POTASSIUM 3.2 mmol/L (3.5-5.1)
[2020-08-06] MEDS: ONDANSETRON PF 4 MG/2 ML VIAL. IVP PRN (08:55)
[2020-08-06] MEDS: PANTOPRAZOLE IV PUSH 40 MG VIAL. IVP SCH ×2 (08:55→17:29)
[2020-08-06] MEDS: METOCLOPRAMIDE HCL 10 MG/2 ML VIAL. IVP SCH ×4 (08:55→20:23)
--- NOTE | 2020-08-06 08:58 | PDOC ---
PROGRESS NOTES Date of Service: DATE: 08/06/20 TIME: 08:58 Chief Complaint Chief Complaint impression H/o gastroparesis diagnosed w/ GES at [facility] several years ago. Intractable nausea vomiting Hypertensive urgency Hyperglycemia MORBID OBESITY HYPOKALEMIA Leukocytosis diabetes plan Advance diet as tolerated Continue IV fluids KUB Ambulation for DVT prophylaxis Protonix GI prophylaxis ADA diet Full code Discussed with RN and SW UA CT ABDOMEN iv hydralazine 10 mg q 4 hrs prn bp support IV K REPLACEMENT troponin i Disposition patient management above Surrogate decision maker is undesignated 08-06 still vomiting, not feeling well, some epigastric pain. No dizziness. D/W portrait artist abd series add iv hydralazine prn IV K Most likely secondary to gastroparesis exacerbation. Medical therapy with prokinetic therapy and anti-emetics. Cardiac evaluation for possible RCA/inferior wall disease also recommended with morning flares. 38 MIN pt exam, chart review, > 50% of time spent with exam, chart review, pt care coordination History of Present Illness History of Present Illness 08/06: Afebrile. Still with nausea and vomiting this morning. NPO at this time. Continue with Protonix, Reglan, and Benadryl. Will consult GI for further recommendations. Continue to monitor inpatient and provide supportive care. CT ABD ACUTE ABD SERIES UA, PROCALCITONIN 08/05: Afebrile. Still with nausea and vomiting this morning. Had breakfast today consisting of pancakes and sausage. Will change diet to NPO at this time. Continue with Protonix, Reglan, and Benadryl. Will consult GI for further recommendations. Continue to monitor inpatient and provide supportive care. 08/04: Afebrile. Episode of vomiting overnight. States his diet was advanced, feels like food is sitting "like a brick" in his stomach. Continue with Protonix, Reglan, and Benadryl, as patient gets benefit from his medications. If no improvement will consult GI for further recommendations. 08/03: 49 year old male with past medical history of gastroparesis presents with a chief complaint of nausea vomiting and abdominal discomfort. Patient states onset of symptoms 3 days ago. Patient states he is unable to keep any fluids or his medications down. Patient was evaluated and discharge from this emergency department earlier today. Vitals Vitals Vital Signs Date Time Temp Pulse Resp B/P (MAP) Pulse Ox O2 Delivery O2 Flow Rate FiO2 08/06/20 07:00 98.5 83 17 187/81 (116) 94 Room Air 98.5 Physical Exam Physical Exam GEN: mild apparent distress. Alert and oriented HEENT: Normal cephalic, atraumatic, external auditory canals are patent EYES: Extraocular muscles are intact, pupil are equally round and reactive to light and accommodation MUSCULOSKELETAL: Well developed , well nourished, good range of motion ENDOCRINE: No thyromegaly was palpated LYMPHATICS: No cervical chain or axillary nodes were noted HEMATOPOIETIC: No bruising NECK: Supple, no JVD, no thyromegaly was noted LUNGS: Clear to auscultation in all lung colby without rhonchi or wheezing HEART: RRR, S!, S2 present. Peripheral pulses intact, no obvious murmurs noted ABDOMEN: Soft, nontender. Positive bowel sounds, no organomegaly, normal bowel sounds EXTREMITIES: Without clubbing, cyanosis, or edema. Pedal pulses intact. Negative Homans sign NEUROLOGIC: Normal speech and tone. A&O x 3, moves all extremities, no obvious focal deficits PSYCHIATRIC: Normal affect, normal mood. Stable SKIN: No ulcerations or rashes, good skin turgor, no jaundice VASCULAR: Good capillary refill, neurovascular bundle appears to be intact General: Alert, Oriented X3, Cooperative, mild distress Heart: Regular rate, No murmurs Lungs: Clear Abdomen: Soft, No tenderness Extremities: No cyanosis, No edema Skin: No significant lesion Labs LABS Signed PATIENT: LEANDRO BILLY ACCOUNT: [id number] : 1970 LOCATION: [address] [place] [address] AGE: 49 SEX: M EXAM STATUS: ADM IN ORD. PHYSICIAN: TOVA GARCIA MD REASON: N/V #[id number] PROCEDURE: KUB EXAM: Abdomen, single view. HISTORY: Pain. COMPARISON: None. FINDINGS: A frontal supine views of the abdomen are obtained. There are nonspecific air-filled dose of bowel within the abdomen. There is no evidence of abnormal bowel dilatation or transition point to suggest obstruction. IMPRESSION: Nonobstructive bowel gas pattern. Electronically signed by: Grace Martinez MD (08/03/2020 1:16 PM) [id number] DICTATED and SIGNED BY: GRACE MARTINEZ MD DATE: 08/03/20 [id number] Laboratory Tests Test 08/05/20 20:44 08/06/20 06:15 08/06/20 07:28 Glucose (Fingerstick) 149 mg/dL (70-99) 143 mg/dL (70-99) White Blood Count 15.6 x10^3/uL (4.0-11.0) Red Blood Count 5.47 x10^6/uL (4.30-5.70) Hemoglobin 16.4 g/dL (13.0-17.5) Hematocrit 45.8 % (39.0-53.0) Mean Corpuscular Volume 84 fL (79-100) Mean Corpuscular Hemoglobin 30 pg (25-35) Mean Corpuscular Hemoglobin Concent 36 g/dL (31-37) Red Cell Distribution Width 13.9 % (11.5-14.5) Platelet Count 311 x10^3/uL (140-400) Sodium Level 140 mmol/L (136-145) Potassium Level 3.2 mmol/L (3.5-5.1) Chloride Level 103 mmol/L (98-107) Carbon Dioxide Level 23 mmol/L (21-32) Anion Gap 14 (6-14) Blood Urea Nitrogen 10 mg/dL (8-26) Creatinine 0.8 mg/dL (0.7-1.3) Estimated GFR (Cockcroft-Gault) 101.9 Glucose Level 132 mg/dL (70-99) Calcium Level 8.9 mg/dL (8.5-10.1) Assessment and Plan Assessmemt and Plan Problems Medical Problems: (1) Gastroparesis Status: Acute (2) Nausea & vomiting Status: Acute Comment Review of Relevant I have reviewed the following items zonia (where applicable) has been applied. Labs Laboratory Tests Test 08/04/20 10:50 08/04/20 16:32 08/04/20 21:18 08/05/20 07:41 Glucose (Fingerstick) 203 mg/dL (70-99) 240 mg/dL (70-99) 178 mg/dL (70-99) 183 mg/dL (70-99) Test 08/05/20 20:44 08/06/20 06:15 08/06/20 07:28 Glucose (Fingerstick) 149 mg/dL (70-99) 143 mg/dL (70-99) White Blood Count 15.6 x10^3/uL (4.0-11.0) Red Blood Count 5.47 x10^6/uL (4.30-5.70) Hemoglobin 16.4 g/dL (13.0-17.5) Hematocrit 45.8 % (39.0-53.0) Mean Corpuscular Volume 84 fL (79-100) Mean Corpuscular Hemoglobin 30 pg (25-35) Mean Corpuscular Hemoglobin Concent 36 g/dL (31-37) Red Cell Distribution Width 13.9 % (11.5-14.5) Platelet Count 311 x10^3/uL (140-400) Sodium Level 140 mmol/L (136-145) Potassium Level 3.2 mmol/L (3.5-5.1) Chloride Level 103 mmol/L (98-107) Carbon Dioxide Level 23 mmol/L (21-32) Anion Gap 14 (6-14) Blood Urea Nitrogen 10 mg/dL (8-26) Creatinine 0.8 mg/dL (0.7-1.3) Estimated GFR (Cockcroft-Gault) 101.9 Glucose Level 132 mg/dL (70-99) Calcium Level 8.9 mg/dL (8.5-10.1) Laboratory Tests Test 08/05/20 20:44 08/06/20 06:15 08/06/20 07:28 Glucose (Fingerstick) 149 mg/dL (70-99) 143 mg/dL (70-99) White Blood Count 15.6 x10^3/uL (4.0-11.0) Red Blood Count 5.47 x10^6/uL (4.30-5.70) Hemoglobin 16.4 g/dL (13.0-17.5) Hematocrit 45.8 % (39.0-53.0) Mean Corpuscular Volume 84 fL (79-100) Mean Corpuscular Hemoglobin 30 pg (25-35) Mean Corpuscular Hemoglobin Concent 36 g/dL (31-37) Red Cell Distribution Width 13.9 % (11.5-14.5) Platelet Count 311 x10^3/uL (140-400) Sodium Level 140 mmol/L (136-145) Potassium Level 3.2 mmol/L (3.5-5.1) Chloride Level 103 mmol/L (98-107) Carbon Dioxide Level 23 mmol/L (21-32) Anion Gap 14 (6-14) Blood Urea Nitrogen 10 mg/dL (8-26) Creatinine 0.8 mg/dL (0.7-1.3) Estimated GFR (Cockcroft-Gault) 101.9 Glucose Level 132 mg/dL (70-99) Calcium Level 8.9 mg/dL (8.5-10.1) Medications Current Medications Sodium Chloride 1,000 ml @ 1,000 mls/hr 1X ONCE IV Last administered on 08/01/20 19:21; Start 08/01/20 at 19:15; Stop 08/01/20 at 20:14; Status DC Metoclopramide HCl (Reglan Vial) 10 mg 1X ONCE IVP Last administered on 08/01/20at 19:23; Start 08/01/20 at 19:15; Stop 08/01/20 at 19:16; Status DC Diphenhydramine HCl (Benadryl) 50 mg 1X ONCE IVP Last administered on 08/01/20at 19:23; Start 08/01/20 at 19:15; Stop 08/01/20 at 19:16; Status DC Pantoprazole Sodium (PROTONIX VIAL for IV PUSH) 40 mg 1X ONCE IVP Last administered on 08/01/20at 19:23; Start 08/01/20 at 19:15; Stop 08/01/20 at 19 :16; Status DC Ondansetron HCl (Zofran) 4 mg PRN Q8HRS PRN IV NAUSEA/VOMITING 1ST CHOICE Last administered on 08/02/20at 06:08; Start 08/01/20 at 21:30; Stop 08/02/20 at 09:25; Status DC Morphine Sulfate (Morphine Sulfate) 2 mg PRN Q2HR PRN IV SEVERE PAIN 7-10 Last administered on 08/02/20at 17:03; Start 08/01/20 at 21:30; Stop 08/02/20 at 21:29; Status DC Sodium Chloride 1,000 ml @ 1,000 mls/hr 1X ONCE IV Last administered on 08/01/20at 22:01; Start 08/01/20 at 22:00; Stop 08/01/20 at 22:59; Status DC Metoclopramide HCl (Reglan Vial) 10 mg PRN Q6HRS PRN IVP NAUSEA/VOMITING 2ND CHOICE Last administered on 08/02/20at 07:38; Start 08/01/20 at 23:00; Stop 08/02/20 at 11:09; Status DC Diphenhydramine HCl (Benadryl) 25 mg PRN Q8HRS PRN IVP ITCHING Last ad ministered on 08/05/20at 21:12; Start 08/01/20 at 23:00 Sennosides (Senna) 17.2 mg PRN BID PRN PO CONSTIPATION; Start 08/02/20 at 09:30 Docusate Sodium (Colace) 100 mg PRN DAILY PRN PO HARD STOOLS; Start 08/02/20 at 09:30 Ondansetron HCl (Zofran) 4 mg PRN Q6HRS PRN IVP NAUSEA/VOMITING Last administered on 08/05/20at 09:31; Start 08/02/20 at 09:30 Insulin Human Lispro (HumaLOG) 0-5 UNITS TIDWMEALS SQ Last administered on 08/05/20at 09:36; Start 08/02/20 at 12:00 Dextrose (Dextrose 50%-Water Syringe) 12.5 gm PRN Q15MIN PRN IV SEE COMMENTS; Start 08/02/20 at 09:30 Sodium Chloride 1,000 ml @ 100 mls/hr Q10H IV Last administered on 08/06/20at 02:45; Start 08/02/20 at 09:30 Acetaminophen (Tylenol) 650 mg PRN Q4HRS PRN PO TEMP OVER 100.4F OR MILD PAIN; Start 08/02/20 at 09:30 Metoclopramide HCl (Reglan Vial) 10 mg Q8HRS IVP Last administered on 08/05/20at 14:11; Start 08/02/20 at 11:30; Stop 08/05/20 at 15:54; Status DC Insulin Glargine (Lantus Syringe) 10 unit BID SQ Last administered on 08/05/20at 21:09; Start 08/02/20 at 21:00 Al Hydroxide/Mg Hydroxide (Mylanta Plus Xs) 30 ml PRN Q2HR PRN PO HEARTBURN / GAS Last administered on 08/03/20at 11:09; Start 08/03/20 at 11:00 Pantoprazole Sodium (PROTONIX VIAL for IV PUSH) 40 mg DAILYAC IVP ; Start 08/04/20 at 07:30; Stop 08/03/20 at 13:06; Status DC Pantoprazole Sodium (PROTONIX VIAL for IV PUSH) 40 mg DAILYAC IVP Last administered on 08/05/20at 08:35; Start 08/03/20 at 13:15; Stop 08/05/20 at 15:54; Status DC Morphine Sulfate (Morphine Sulfate) 2 mg PRN Q2HR PRN IV MODERATE TO SEVERE PAIN Last administered on 08/06/20at 01:31; Start 08/03/20 at 13:15 Metoclopramide HCl (Reglan Vial) 10 mg QIDACHS IVP Last administered on 08/05/20at 21:02; Start 08/05/20 at 16:30 Pantoprazole Sodium (PROTONIX VIAL for IV PUSH) 40 mg BIDAC IVP Last administered on 08/05/20at 16:34; Start 08/05/20 at 16:30 Polyethylene Glycol (miraLAX PACKET) 17 gm DAILY PO ; Start 08/06/20 at 09:00 Bisacodyl (Dulcolax Tab) 5 mg 1X ONCE PO Last administered on 08/05/20at 16:33; Start 08/05/20 at 16:00; Stop 08/05/20 at 16:01; Status DC Active Scripts Active Reported Glipizide 5 Mg Tablet 1 Tab PO BID Benadryl (Diphenhydramine Hcl) 25 Mg Capsule 2 Cap PO PRN PRN 30 Days Reglan (Metoclopramide Hcl) 5 Mg Tablet 5 Mg PO QIDACHS Vitals/I & O Vital Sign - Last 24 Hours 08/05/20 08/05/20 08/05/20 08/05/20 10:01 10:45 11:00 12:25 Temp 98.4 98.4 Pulse 77 Resp 16 B/P (MAP) 154/71 (98) Pulse Ox 95 O2 Delivery Room Air Room Air Room Air Room Air 08/05/20 08/05/20 08/05/20 08/05/20 14:10 15:00 15:54 16:48 Temp 98.2 98.2 Pulse 80 Resp 17 B/P (MAP) 183/97 (125) Pulse Ox 93 O2 Delivery Room Air Room Air Room Air Room Air 08/05/20 08/05/20 08/05/20 08/05/20 19:25 20:30 21:15 21:45 Temp 98.6 98.6 Pulse 78 Resp 20 18 B/P (MAP) 180/76 (110) Pulse Ox 94 94 O2 Delivery Room Air Room Air Room Air Room Air 08/05/20 08/06/20 08/06/20 08/06/20 23:50 01:31 02:01 03:41 Temp 98.3 98.5 98.3 98.5 Pulse 77 80 Resp 18 20 18 B/P (MAP) 156/71 (99) 159/77 (104) Pulse Ox 94 94 93 O2 Delivery Room Air Room Air Room Air Room Air 08/06/20 07:00 Temp 98.5 98.5 Pulse 83 Resp 17 B/P (MAP) 187/81 (116) Pulse Ox 94 O2 Delivery Room Air Intake and Output 08/05/20 08/05/20 08/06/20 15:00 23:00 07:00 Intake Total 180 ml 240 ml 1360 ml Balance 180 ml 240 ml 1360 ml Justicifation of Admission Dx: Justifications for Admission: Justification of Admission Dx: Yes Comments: intractable vomitinfg, iv fluids, iv k BEE ROMEO MD Aug 06, 2020 08:58
[2020-08-06] MEDS: POLYETHYLENE GLYCOL 3350 17 GM PACKET. PO SCH (09:00)
[2020-08-06] MEDS: INSULIN GLARGINE SYRINGE. SQ SCH ×2 (09:28→21:42)
--- NOTE | 2020-08-06 10:11 | NUR ---
SW following. Discussed with RN, pt from home with brother, room air, clear liquid diet. GI following, pt vomiting still. RN advised no SW needs at this time. SW will continue to follow.
[2020-08-06 11:00] VITALS: BP 180/77
--- NOTE | 2020-08-06 11:08 | PDOC ---
Date of Service: DATE: 08/06/20 TIME: 11:04 Subjective: Subjective: Doesn't want even liquids - still vomiting, not feeling well, some epigastric pain. No dizziness. Objective: Vital Signs: Vital Signs Date Time Temp Pulse Resp B/P (MAP) Pulse Ox O2 Delivery O2 Flow Rate FiO2 08/06/20 09:31 Room Air 08/06/20 07:00 98.5 83 17 187/81 (116) 94 98.5 Labs: Laboratory Tests Test 08/05/20 20:44 08/06/20 07:28 Glucose (Fingerstick) 149 mg/dL (70-99) 143 mg/dL (70-99) PE: GEN: actively vomiting - bilious - small amount into trashcan LUNGS: CTAB HEART: RRR ABD: quiet, soft, epigastric discomfort NEURO/PSYCH: A & O 3 A/P: N/v, upper abd discomfort, h/o diabetic gastroparesis and GERD -- Ongoing n/v despite IV prokinetic, acid-splitter head, and anti-emetic. Will ask for cardiology opinion (?stress test) as previously discussed. Justicifation of Admission Dx: Justifications for Admission: Justification of Admission Dx: Yes JULISSA GERARD Aug 06, 2020 11:08
[2020-08-06] MEDS: diphenhydrAMINE 50 MG/ML VIAL IVP PRN ×2 (11:56→20:23)
[2020-08-06] MEDS ORDERED: POTASSIUM CHLORIDE 20MEQ 100 ML IV SCH (13:00)
[2020-08-06] MEDS ORDERED: hydrALAZINE 20 MG/ML VIAL. IVP PRN ×2 (13:00→13:45)
[2020-08-06 13:02] LABS: CHOLESTEROL/HDL RATIO 3.5
--- NOTE | 2020-08-06 13:40 | PDOC2 ---
ECTOR ARIAS ELEMENTARY EDUCATION TEACHER 08/06/20 1340: CARDIAC CONSULT DATE OF CONSULT Date of Consult DATE: 08/06/20 TIME: 13:14 REASON FOR CONSULT Reason for Consult: n/v, rule out RCA disease REFERRING PHYSICIAN Referring Physician: Michael SOURCE Source: Chart review, Patient HISTORY OF PRESENT ILLNESS HISTORY OF PRESENT ILLNESS This is a pleasant 49 yo male admitted for complains of nausea and vomiting. He is significant for GERD and gastroparesis. He has been having GI symptoms worse in the last 2 weeks preventing him from taking his meds and also has not been eating well. Consult is for rule out RCA in relation to indigestion and persistent n/v. He also has CAD eqquivalence with DM with an A1C of 7.6 He does not take any ASA, statin or any BP meds and has not had any stress test in the past. No hx of VTE, CAD or arrhythmias. Denies any chest pain, jaw tightness, arm heaviness and denies any significnat LING or exertional chest pain although he feels easily winded when he goes up the stairs at his house. No recent falls or injury. He is on disability due to his gastroparesis. He has been evaluated by GI. PAST MEDICAL HISTORY Cardiovascular: No pertinent hx Pulmonary: Asthma GI: GERD, Other (gastroparesis) Heme/Onc: No pertinent hx Hepatobiliary: No pertinent hx Psych: No pertinent hx Musculoskeletal: Osteoarthritis Rheumatologic: No pertinent hx Infectious disease: No pertinent hx ENT: No pertinent hx Renal/: No pertinent hx Endocrine: Diabetes Dermatology: No pertinent hx PAST SURGICAL HISTORY Past Surgical History: Cholecystectomy, Other (toe amputation) FAMILY HISTORY Family History noncontributory to CV SOCIAL HISTORY Smoke: No ALCOHOL: none Drugs: None Lives: Alone CURRENT MEDICATIONS CURRENT MEDICATIONS Current Medications Medications (Trade) Dose Ordered Sig/Cr Route PRN Reason Start Time Stop Time Status Last Admin Dose Admin Metoclopramide HCl (Reglan Vial) 10 mg QIDACHS IVP 08/05/20 16:30 08/06/20 11:54 Pantoprazole Sodium (PROTONIX VIAL for IV PUSH) 40 mg BIDAC IVP 08/05/20 16:30 08/06/20 08:55 Bisacodyl (Dulcolax Tab) 5 mg 1X ONCE PO 08/05/20 16:00 08/05/20 16:01 DC 08/05/20 16:33 ALLERGIES ALLERGIES: Coded Allergies: aspirin (Verified Allergy, Severe, STOMACH BLEEDING, 08/01/20) ROS Review of System 14 point ROS evaluated with pertinent positives noted per HPI PHYSICAL EXAM General: Alert, Oriented X3, Cooperative, No acute distress HEENT: Atraumatic, Mucous membr. moist/pink Lungs: Clear to auscultation, Normal air movement Heart: Regular rate (SR), Normal S1, Normal S2, No murmurs Abdomen: Soft, No tenderness Extremities: No cyanosis, No edema Skin: No breakdown, No significant lesion Neuro: Normal speech, Sensation intact Psych/Mental Status: Mental status NL, Mood NL MUSCULOSKELETAL: Osteoarthritic changes both hands VITALS/I&O VITALS/I&O: Vital Signs Date Time Temp Pulse Resp B/P (MAP) Pulse Ox O2 Delivery O2 Flow Rate FiO2 08/06/20 11:00 98.4 83 17 180/77 (111) 95 Room Air 98.4 I & O 08/05/20 08/05/20 08/06/20 15:00 23:00 07:00 Intake Total 180 ml 240 ml 1360 ml Balance 180 ml 240 ml 1360 ml LABS Lab: Laboratory Tests Test 08/05/20 20:44 08/06/20 06:15 08/06/20 07:28 08/06/20 11:38 Glucose (Fingerstick) 149 mg/dL (70-99) H 143 mg/dL (70-99) H 150 mg/dL (70-99) H White Blood Count 15.6 x10^3/uL (4.0-11.0) H Red Blood Count 5.47 x10^6/uL (4.30-5.70) Hemoglobin 16.4 g/dL (13.0-17.5) Hematocrit 45.8 % (39.0-53.0) Mean Corpuscular Volume 84 fL (79-100) Mean Corpuscular Hemoglobin 30 pg (25-35) Mean Corpuscular Hemoglobin Concent 36 g/dL (31-37) Red Cell Distribution Width 13.9 % (11.5-14.5) Platelet Count 311 x10^3/uL (140-400) Sodium Level 140 mmol/L (136-145) Potassium Level 3.2 mmol/L (3.5-5.1) L Chloride Level 103 mmol/L (98-107) Carbon Dioxide Level 23 mmol/L (21-32) Anion Gap 14 (6-14) Blood Urea Nitrogen 10 mg/dL (8-26) Creatinine 0.8 mg/dL (0.7-1.3) Estimated GFR (Cockcroft-Gault) 101.9 Glucose Level 132 mg/dL (70-99) H Calcium Level 8.9 mg/dL (8.5-10.1) Troponin I Quantitative < 0.017 ng/mL (0.000-0.055) Triglycerides Level 79 mg/dL (0-150) Cholesterol Level 124 mg/dL (0-200) LDL Cholesterol, Calculated 73 mg/dL (0-100) VLDL Cholesterol, Calculated 16 mg/dL (0-40) Non-HDL Cholesterol Calculated 89 mg/dL (0-129) HDL Cholesterol 35 mg/dL (40-60) L Cholesterol/HDL Ratio 3.5 Thyroid Stimulating Hormone (TSH) 1.390 uIU/mL (0.358-3.74) Laboratory Tests 08/06/20 06:15 Laboratory Tests 08/06/20 06:15 ASSESSMENT/PLAN ASSESSMENT/PLAN 1. Nausea/vomiting/abd pain with hx of gastroparesis and GERD 2. DM2: A1C 7.6 3. HTN: labile 4. Deconditioning 5. MIld hypokalemia Recommendations Pt has not been having any cardiac symptoms and has a low pretest probability for ACS. Having said that he does have uncontrolled DM which is a CAD equivalence. He also has low endurance given that he is sedentary and likely deconditioned. I discussed with him about treadmill stress test as an outpt and he does not want to pursue this. He is unable to tolerate ASA due to GI issues. His BP is labile and I will start him on lisinopril. He does not take statin but his lipids are on goal except that HDL is slightly low. Consider low dose statin with its pleiotropic He is presently NPO, hydralazine IV PRN. Will add K to his IVF. Will obtain baseline EKG. Nothing further cardiac jackson, thank you for letting us participate on this gentleman. JOZEF HATFIELD MD 08/06/201929: CARDIAC CONSULT ASSESSMENT/PLAN ASSESSMENT/PLAN Patient seen and evaluated. I agree with our nurse practitioners assessment and plan. Abdominal pain with nausea and vomiting. History of gastroparesis. Being worked up by the GI service. Discussion of possible stress testing as noted above. Patient does not wish a stress test at this time. Hypertension. Starting on lisinopril as noted above. Mild hypokalemia. Being replaced. Monitor. Diabetes mellitus. As per the primary service. Future monitoring of his lipids but would hold on new medications at this time. ECTOR ARIAS APRN Aug 06, 2020 13:40 JOZEF HATFIELD MD Aug 06, 2020 19:30
[2020-08-06] MEDS: POTASSIUM CHLORIDE 10MEQ 100 ML IV SCH ×4 (13:55→19:20)
[2020-08-06] MEDS: LISINOPRIL 10 MG TABLET PO SCH (14:12)
--- NOTE | 2020-08-06 14:53 | RAD ---
EXAM: Abdomen series. HISTORY: Vomiting. COMPARISON: None. FINDINGS: A frontal view of the chest and frontal upright and supine views of the abdomen are obtaine d. There is linear atelectasis or scarring within the lingula. There is a 1.7 cm nodule overlying the right lung base. There is no infiltrate, pleural fusion or pneumothorax. The heart is normal in size . There are nonspecific air-filled dose of bowel within the abdomen. There is no evidence of bowel ob struction. There is no free air. There are cholecystectomy clips. There are calcified granulomas over lying the bilateral upper quadrants. IMPRESSION: 1. No acute pulmonary finding. 2. Nonobstructive bowel gas pattern. 3. 1.7 cm nodule overlying the right lung base which is not clearly calcified. This can be better ass essed with a chest CT. Electronically signed by: Grace Phipps MD (08/06/2020 2:50 PM) [id number]
[2020-08-06 15:00] VITALS: BP 166/75
[2020-08-06 15:09] LABS: BILIRUBIN,URINE NEGATIVE (NEG); CLARITY,URINE CLEAR; COLOR,URINE YELLOW; NITRITE,URINE NEGATIVE (NEG); PH,URINE 6.5 (<5.0-8.0); PROTEIN,URINE NEGATIVE (NEG-TRACE)
[2020-08-06 15:25] LABS: BACTERIA,URINE 0 /HPF (0-FEW); RBC,URINE 0 /HPF (0-2); WBC,URINE 0 /HPF (0-4)
[2020-08-06 19:00] VITALS: BP 159/91
[2020-08-06 23:00] VITALS: BP 149/78
[2020-08-07 03:00] VITALS: BP 154/75
[2020-08-07] MEDS: diphenhydrAMINE 50 MG/ML VIAL IVP PRN ×3 (04:57→20:05)
[2020-08-07] MEDS: MORPHINE SULFATE 2 MG/ML VIAL. IV PRN ×2 (04:57→12:16)
[2020-08-07 05:51] LABS: BASO # 0.1 x10^3/uL (0.0-0.2); BASO % 1 % (0-3); EOS % 0 % (0-3); HEMATOCRIT 45.2 % (39.0-53.0); HEMOGLOBIN 15.7 g/dL (13.0-17.5); LYMPH # 2.8 x10^3/uL (1.0-4.8); LYMPH % 24 % (24-48); MEAN CORPUSCULAR HEMOGLOBIN 29 pg (25-35); MEAN CORPUSCULAR HGB CONC 35 g/dL (31-37); MEAN CORPUSCULAR VOLUME 84 fL (79-100); MONO % 9 % (0-9); NEUT % 67 % (31-73); PLATELET COUNT 304 x10^3/uL (140-400); RED BLOOD COUNT 5.37 x10^6/uL (4.30-5.70); RED CELL DISTRIBUTION WIDTH 13.7 % (11.5-14.5); WHITE BLOOD COUNT 11.9 x10^3/uL (4.0-11.0)
[2020-08-07 06:02] LABS: CALCIUM 8.8 mg/dL (8.5-10.1); CREATININE 0.9 mg/dL (0.7-1.3); POTASSIUM 3.3 mmol/L (3.5-5.1)
[2020-08-07 07:00] VITALS: BP 192/82
[2020-08-07] MEDS: INSULIN LISPRO 300 UNITS/3 ML VIAL. SQ SCH ×3 (08:00→17:19)
[2020-08-07] MEDS: POLYETHYLENE GLYCOL 3350 17 GM PACKET. PO SCH (08:31)
[2020-08-07] MEDS: METOCLOPRAMIDE HCL 10 MG/2 ML VIAL. IVP SCH ×4 (08:31→20:06)
[2020-08-07] MEDS: LISINOPRIL 10 MG TABLET PO SCH ×2 (08:31→08:40)
[2020-08-07] MEDS: PANTOPRAZOLE IV PUSH 40 MG VIAL. IVP SCH ×2 (08:32→16:40)
--- NOTE | 2020-08-07 08:43 | PDOC ---
PROGRESS NOTES Date of Service: DATE: 08/07/20 TIME: 08:42 Chief Complaint Chief Complaint impression H/o gastroparesis diagnosed w/ GES at [facility] several years ago. Intractable nausea vomiting Hypertensive urgency Hyperglycemia MORBID OBESITY HYPOKALEMIA Leukocytosis diabetes plan Advance diet as tolerated Continue IV fluids KUB Ambulation for DVT prophylaxis Protonix GI prophylaxis ADA diet Full code Discussed with RN and SW UA CT ABDOMEN iv hydralazine 10 mg q 4 hrs prn bp support IV K REPLACEMENT troponin i Disposition patient management above Surrogate decision maker is undesignated 08-06 still vomiting, not feeling well, some epigastric pain. No dizziness. D/W supervisor taping abd series add iv hydralazine prn IV K Most likely secondary to gastroparesis exacerbation. Medical therapy with prokinetic therapy and anti-emetics. Cardiac evaluation for possible RCA/inferior wall disease also recommended with morning flares. 38 MIN pt exam, chart review, > 50% of time spent with exam, chart review, pt care coordination History of Present Illness History of Present Illness Rule out RCA in relation to indigestion and persistent n/v. 08/07: Afebrile. CARDIOLOGY AND GI CONSULTS. clears Continue with Protonix, Reglan, and Benadryl. Will consult GI for further recommendations. Continue to monitor inpatient and provide supportive care. CT ABD ACUTE ABD SERIES UA, PROCALCITONIN Making no progress n/v-jackson despite IV Reglan, anti-emetic, PPI. D/W RN echo left ventricular systolic function is normal. The Ejection Fraction is 55-60%. echo 08-07: Afebrile. Still with nausea and vomiting this morning. NPO at this time. Continue with Protonix, Reglan, and Benadryl. Will consult GI for further recommendations. Continue to monitor inpatient and provide supportive care. CT ABD ACUTE ABD SERIES UA, PROCALCITONIN 08/05: Afebrile. Still with nausea and vomiting this morning. Had breakfast today consisting of pancakes and sausage. Will change diet to NPO at this time. Continue with Protonix, Reglan, and Benadryl. Will consult GI for further recommendations. Continue to monitor inpatient and provide supportive care. 08/04: Afebrile. Episode of vomiting overnight. States his diet was advanced, feels like food is sitting "like a brick" in his stomach. Continue with Protonix, Reglan, and Benadryl, as patient gets benefit from his medications. If no improvement will consult GI for further recommendations. 08/03: 49 year old male with past medical history of gastroparesis presents with a chief complaint of nausea vomiting and abdominal discomfort. Patient states onset of symptoms 3 days ago. Patient states he is unable to keep any fluids or his medications down. Patient was evaluated and discharge from this emergency department earlier today. Vitals Vitals Vital Signs Date Time Temp Pulse Resp B/P (MAP) Pulse Ox O2 Delivery O2 Flow Rate FiO2 08/07/20 08:40 82 192/82 08/07/20 07:00 97.9 18 98 Room Air 97.9 Physical Exam Physical Exam GEN: mild apparent distress. Alert and oriented HEENT: Normal cephalic, atraumatic, external auditory canals are patent EYES: Extraocular muscles are intact, pupil are equally round and reactive to light and accommodation MUSCULOSKELETAL: Well developed , well nourished, good range of motion ENDOCRINE: No thyromegaly was palpated LYMPHATICS: No cervical chain or axillary nodes were noted HEMATOPOIETIC: No bruising NECK: Supple, no JVD, no thyromegaly was noted LUNGS: Clear to auscultation in all lung colby without rhonchi or wheezing HEART: RRR, S!, S2 present. Peripheral pulses intact, no obvious murmurs noted ABDOMEN: Soft, nontender. Positive bowel sounds, no organomegaly, normal bowel sounds EXTREMITIES: Without clubbing, cyanosis, or edema. Pedal pulses intact. Negative Homans sign NEUROLOGIC: Normal speech and tone. A&O x 3, moves all extremities, no obvious focal deficits PSYCHIATRIC: Normal affect, normal mood. Stable SKIN: No ulcerations or rashes, good skin turgor, no jaundice VASCULAR: Good capillary refill, neurovascular bundle appears to be intact General: Alert, Oriented X3, Cooperative, No acute distress, mild distress Heart: Regular rate (SR), Normal S1, Normal S2, No murmurs Lungs: Clear Abdomen: Normal bowel sounds, Soft, No tenderness Extremities: No cyanosis, No edema Skin: No breakdown, No significant lesion Labs LABS RIGHT VENTRICLE The right ventricle is normal size. The right ventricular systolic function is normal. ATRIA The left atrium size is normal. The right atrium size is normal. The interatrial septum is intact with no evidence for an atrial septal defect or patent foramen ovale as noted on 2-D or Doppler imaging. AORTIC VALVE The aortic valve is calcified but opens well. Doppler and Color Flow revealed no significant aortic regurgitation. There is no significant aortic valvular stenosis. MITRAL VALVE The mitral valve is normal in structure and function. There is no evidence of mitral valve prolapse. There is no mitral valve stenosis. Doppler and Color Flow revealed no mitral valve regurgitation noted. TRICUSPID VALVE The tricuspid valve is normal in structure and function. Doppler and Color Flow revealed trace tricuspid regurgitation. The PA pressure was estimated at 23 mmHg. There is no tricuspid valve stenosis. PULMONIC VALVE The pulmonic valve is not well visualized. Doppler and Color Flow revealed mild pulmonic valvular regurgitation. There is no pulmonic valvular stenosis. GREAT VESSELS The aortic root is normal in size. The ascending aorta is normal in size. The IVC is normal in size and collapses >50% with inspiration. PERICARDIAL EFFUSION There is no evidence of significant pericardial effusion. Critical Notification Critical Value: No <Conclusion> The left ventricular systolic function is normal. The Ejection Fraction is 55-60%. There is normal LV segmental wall motion. Trace tricuspid regurgitation. The PA pressure was estimated at 23 mmHg. There is no evidence of significant pericardial effusion. Signed by : Torrey Sharp, Electronically Approved : 08/07/2020 11:57:03 DICTATED and SIGNED BY: TORREY SHARP MD DATE: 08/07/20 [id number] EXAM: Abdomen series. HISTORY: Vomiting. COMPARISON: None. FINDINGS: A frontal view of the chest and frontal upright and supine views of the abdomen are obtained. There is linear atelectasis or scarring within the lingula. There is a 1.7 cm nodule overlying the right lung base. There is no infiltrate, pleural fusion or pneumothorax. The heart is normal in size. There are nonspecific air-filled dose of bowel within the abdomen. There is no evidence of bowel obstruction. There is no free air. There are cholecystectomy clips. There are calcified granulomas overlying the bilateral upper quadrants. IMPRESSION: 1. No acute pulmonary finding. 2. Nonobstructive bowel gas pattern. 3. 1.7 cm nodule overlying the right lung base which is not clearly calcified. This can be better assessed with a chest CT. Electronically signed by: Grace Martinez MD (08/06/2020 2:50 PM) [id number] DICTATED and SIGNED BY: GRACE MARTINEZ MD DATE: 08/06/20 [id number] Laboratory Tests Test 08/06/20 11:38 08/06/20 15:00 08/06/20 17:03 08/06/20 21:19 Glucose (Fingerstick) 150 mg/dL (70-99) 142 mg/dL (70-99) 164 mg/dL (70-99) Urine Collection Type Unknown Urine Color Yellow Urine Clarity Clear Urine pH 6.5 (<5.0-8.0) Urine Specific [place] 1.020 (1.000-1.030) Urine Protein Negative mg/dL (NEG-TRACE) Urine Glucose (UA) Negative mg/dL (NEG) Urine Ketones (Stick) >=80 mg/dL (NEG) Urine Blood Negative (NEG) Urine Nitrite Negative (NEG) Urine Bilirubin Negative (NEG) Urine Urobilinogen Dipstick 1.0 mg/dL (0.2 mg/dL) Urine Leukocyte Esterase Negative (NEG) Urine RBC 0 /HPF (0-2) Urine WBC 0 /HPF (0-4) Urine Bacteria 0 /HPF (0-FEW) Urine Mucus Mod /LPF Test 08/07/20 05:28 08/07/20 07:58 White Blood Count 11.9 x10^3/uL (4.0-11.0) Red Blood Count 5.37 x10^6/uL (4.30-5.70) Hemoglobin 15.7 g/dL (13.0-17.5) Hematocrit 45.2 % (39.0-53.0) Mean Corpuscular Volume 84 fL (79-100) Mean Corpuscular Hemoglobin 29 pg (25-35) Mean Corpuscular Hemoglobin Concent 35 g/dL (31-37) Red Cell Distribution Width 13.7 % (11.5-14.5) Platelet Count 304 x10^3/uL (140-400) Neutrophils (%) (Auto) 67 % (31-73) Lymphocytes (%) (Auto) 24 % (24-48) Monocytes (%) (Auto) 9 % (0-9) Eosinophils (%) (Auto) 0 % (0-3) Basophils (%) (Auto) 1 % (0-3) Neutrophils # (Auto) 8.0 x10^3/uL (1.8-7.7) Lymphocytes # (Auto) 2.8 x10^3/uL (1.0-4.8) Monocytes # (Auto) 1.0 x10^3/uL (0.0-1.1) Eosinophils # (Auto) 0.0 x10^3/uL (0.0-0.7) Basophils # (Auto) 0.1 x10^3/uL (0.0-0.2) Sodium Level 141 mmol/L (136-145) Potassium Level 3.3 mmol/L (3.5-5.1) Chloride Level 104 mmol/L (98-107) Carbon Dioxide Level 29 mmol/L (21-32) Anion Gap 8 (6-14) Blood Urea Nitrogen 7 mg/dL (8-26) Creatinine 0.9 mg/dL (0.7-1.3) Estimated GFR (Cockcroft-Gault) 89.0 Glucose Level 131 mg/dL (70-99) Calcium Level 8.8 mg/dL (8.5-10.1) Glucose (Fingerstick) 162 mg/dL (70-99) Assessment and Plan Assessmemt and Plan Problems Medical Problems: (1) Gastroparesis Status: Acute (2) Nausea & vomiting Status: Acute Comment Review of Relevant I have reviewed the following items zonia (where applicable) has been applied. Labs Laboratory Tests Test 08/05/20 11:43 08/05/20 17:11 08/05/20 20:44 08/06/20 06:15 Glucose (Fingerstick) 195 mg/dL (70-99) 172 mg/dL (70-99) 149 mg/dL (70-99) White Blood Count 15.6 x10^3/uL (4.0-11.0) Red Blood Count 5.47 x10^6/uL (4.30-5.70) Hemoglobin 16.4 g/dL (13.0-17.5) Hematocrit 45.8 % (39.0-53.0) Mean Corpuscular Volume 84 fL (79-100) Mean Corpuscular Hemoglobin 30 pg (25-35) Mean Corpuscular Hemoglobin Concent 36 g/dL (31-37) Red Cell Distribution Width 13.9 % (11.5-14.5) Platelet Count 311 x10^3/uL (140-400) Sodium Level 140 mmol/L (136-145) Potassium Level 3.2 mmol/L (3.5-5.1) Chloride Level 103 mmol/L (98-107) Carbon Dioxide Level 23 mmol/L (21-32) Anion Gap 14 (6-14) Blood Urea Nitrogen 10 mg/dL (8-26) Creatinine 0.8 mg/dL (0.7-1.3) Estimated GFR (Cockcroft-Gault) 101.9 Glucose Level 132 mg/dL (70-99) Calcium Level 8.9 mg/dL (8.5-10.1) Troponin I Quantitative < 0.017 ng/mL (0.000-0.055) Triglycerides Level 79 mg/dL (0-150) Cholesterol Level 124 mg/dL (0-200) LDL Cholesterol, Calculated 73 mg/dL (0-100) VLDL Cholesterol, Calculated 16 mg/dL (0-40) Non-HDL Cholesterol Calculated 89 mg/dL (0-129) HDL Cholesterol 35 mg/dL (40-60) Cholesterol/HDL Ratio 3.5 Procalcitonin < 0.10 ng/mL (0.00-0.10) Thyroid Stimulating Hormone (TSH) 1.390 uIU/mL (0.358-3.74) Test 08/06/20 07:28 08/06/20 11:38 08/06/20 15:00 08/06/20 17:03 Glucose (Fingerstick) 143 mg/dL (70-99) 150 mg/dL (70-99) 142 mg/dL (70-99) Urine Collection Type Unknown Urine Color Yellow Urine Clarity Clear Urine pH 6.5 (<5.0-8.0) Urine Specific [place] 1.020 (1.000-1.030) Urine Protein Negative mg/dL (NEG-TRACE) Urine Glucose (UA) Negative mg/dL (NEG) Urine Ketones (Stick) >=80 mg/dL (NEG) Urine Blood Negative (NEG) Urine Nitrite Negative (NEG) Urine Bilirubin Negative (NEG) Urine Urobilinogen Dipstick 1.0 mg/dL (0.2 mg/dL) Urine Leukocyte Esterase Negative (NEG) Urine RBC 0 /HPF (0-2) Urine WBC 0 /HPF (0-4) Urine Bacteria 0 /HPF (0-FEW) Urine Mucus Mod /LPF Test 08/06/20 21:19 08/07/20 05:28 08/07/20 07:58 Glucose (Fingerstick) 164 mg/dL (70-99) 162 mg/dL (70-99) White Blood Count 11.9 x10^3/uL (4.0-11.0) Red Blood Count 5.37 x10^6/uL (4.30-5.70) Hemoglobin 15.7 g/dL (13.0-17.5) Hematocrit 45.2 % (39.0-53.0) Mean Corpuscular Volume 84 fL (79-100) Mean Corpuscular Hemoglobin 29 pg (25-35) Mean Corpuscular Hemoglobin Concent 35 g/dL (31-37) Red Cell Distribution Width 13.7 % (11.5-14.5) Platelet Count 304 x10^3/uL (140-400) Neutrophils (%) (Auto) 67 % (31-73) Lymphocytes (%) (Auto) 24 % (24-48) Monocytes (%) (Auto) 9 % (0-9) Eosinophils (%) (Auto) 0 % (0-3) Basophils (%) (Auto) 1 % (0-3) Neutrophils # (Auto) 8.0 x10^3/uL (1.8-7.7) Lymphocytes # (Auto) 2.8 x10^3/uL (1.0-4.8) Monocytes # (Auto) 1.0 x10^3/uL (0.0-1.1) Eosinophils # (Auto) 0.0 x10^3/uL (0.0-0.7) Basophils # (Auto) 0.1 x10^3/uL (0.0-0.2) Sodium Level 141 mmol/L (136-145) Potassium Level 3.3 mmol/L (3.5-5.1) Chloride Level 104 mmol/L (98-107) Carbon Dioxide Level 29 mmol/L (21-32) Anion Gap 8 (6-14) Blood Urea Nitrogen 7 mg/dL (8-26) Creatinine 0.9 mg/dL (0.7-1.3) Estimated GFR (Cockcroft-Gault) 89.0 Glucose Level 131 mg/dL (70-99) Calcium Level 8.8 mg/dL (8.5-10.1) Laboratory Tests Test 08/06/20 11:38 08/06/20 15:00 08/06/20 17:03 08/06/20 21:19 Glucose (Fingerstick) 150 mg/dL (70-99) 142 mg/dL (70-99) 164 mg/dL (70-99) Urine Collection Type Unknown Urine Color Yellow Urine Clarity Clear Urine pH 6.5 (<5.0-8.0) Urine Specific [place] 1.020 (1.000-1.030) Urine Protein Negative mg/dL (NEG-TRACE) Urine Glucose (UA) Negative mg/dL (NEG) Urine Ketones (Stick) >=80 mg/dL (NEG) Urine Blood Negative (NEG) Urine Nitrite Negative (NEG) Urine Bilirubin Negative (NEG) Urine Urobilinogen Dipstick 1.0 mg/dL (0.2 mg/dL) Urine Leukocyte Esterase Negative (NEG) Urine RBC 0 /HPF (0-2) Urine WBC 0 /HPF (0-4) Urine Bacteria 0 /HPF (0-FEW) Urine Mucus Mod /LPF Test 08/07/20 05:28 08/07/20 07:58 White Blood Count 11.9 x10^3/uL (4.0-11.0) Red Blood Count 5.37 x10^6/uL (4.30-5.70) Hemoglobin 15.7 g/dL (13.0-17.5) Hematocrit 45.2 % (39.0-53.0) Mean Corpuscular Volume 84 fL (79-100) Mean Corpuscular Hemoglobin 29 pg (25-35) Mean Corpuscular Hemoglobin Concent 35 g/dL (31-37) Red Cell Distribution Width 13.7 % (11.5-14.5) Platelet Count 304 x10^3/uL (140-400) Neutrophils (%) (Auto) 67 % (31-73) Lymphocytes (%) (Auto) 24 % (24-48) Monocytes (%) (Auto) 9 % (0-9) Eosinophils (%) (Auto) 0 % (0-3) Basophils (%) (Auto) 1 % (0-3) Neutrophils # (Auto) 8.0 x10^3/uL (1.8-7.7) Lymphocytes # (Auto) 2.8 x10^3/uL (1.0-4.8) Monocytes # (Auto) 1.0 x10^3/uL (0.0-1.1) Eosinophils # (Auto) 0.0 x10^3/uL (0.0-0.7) Basophils # (Auto) 0.1 x10^3/uL (0.0-0.2) Sodium Level 141 mmol/L (136-145) Potassium Level 3.3 mmol/L (3.5-5.1) Chloride Level 104 mmol/L (98-107) Carbon Dioxide Level 29 mmol/L (21-32) Anion Gap 8 (6-14) Blood Urea Nitrogen 7 mg/dL (8-26) Creatinine 0.9 mg/dL (0.7-1.3) Estimated GFR (Cockcroft-Gault) 89.0 Glucose Level 131 mg/dL (70-99) Calcium Level 8.8 mg/dL (8.5-10.1) Glucose (Fingerstick) 162 mg/dL (70-99) Medications Current Medications Sodium Chloride 1,000 ml @ 1,000 mls/hr 1X ONCE IV Last administered on 08/01/20at 19:21; Start 08/01/20 at 19:15; Stop 08/01/20 at 20:14; Status DC Metoclopramide HCl (Reglan Vial) 10 mg 1X ONCE IVP Last administered on 08/01/20at 19:23; Start 08/01/20 at 19:15; Stop 08/01/20 at 19:16; Status DC Diphenhydramine HCl (Benadryl) 50 mg 1X ONCE IVP Last administered on 08/01/20at 19:23; Start 08/01/20 at 19:15; Stop 08/01/20 at 19:16; Status DC Pantoprazole Sodium (PROTONIX VIAL for IV PUSH) 40 mg 1X ONCE IVP Last administered on 08/01/20at 19:23; Start 08/01/20 at 19:15; Stop 08/01/20 at 19:16; Status DC Ondansetron HCl (Zofran) 4 mg PRN Q8HRS PRN IV NAUSEA/VOMITING 1ST CHOICE Last administered on 08/02/20at 06:08; Start 08/01/20 at 21:30; Stop 08/02/20 at 09:25; Status DC Morphine Sulfate (Morphine Sulfate) 2 mg PRN Q2HR PRN IV SEVERE PAIN 7-10 Last administered on 08/02/20at 17:03; Start 08/01/20 at 21:30; Stop 08/02/20 at 21:29; Status DC Sodium Chloride 1,000 ml @ 1,000 mls/hr 1X ONCE IV Last administered on 08/01/20at 22:01; Start 08/01/20 at 22:00; Stop 08/01/20 at 22:59; Status DC Metoclopramide HCl (Reglan Vial) 10 mg PRN Q6HRS PRN IVP NAUSEA/VOMITING 2ND CHOICE Last administered on 08/02/20at 07:38; Start 08/01/20 at 23:00; Stop 08/02/20 at 11:09; Status DC Diphenhydramine HCl (Benadryl) 25 mg PRN Q8HRS PRN IVP ITCHING Last administered on 08/07/20at 04:57; Start 08/01/20 at 23:00 Sennosides (Senna) 17.2 mg PRN BID PRN PO CONSTIPATION; Start 08/02/20 at 09:30 Docusate Sodium (Colace) 100 mg PRN DAILY PRN PO HARD STOOLS; Start 08/02/20 at 09:30 Ondansetron HCl (Zofran) 4 mg PRN Q6HRS PRN IVP NAUSEA/VOMITING Last administered on 08/06/20at 08:55; Start 08/02/20 at 09:30 Insulin Human Lispro (HumaLOG) 0-5 UNITS TIDWMEALS SQ Last administered on 08/05/20at 09:36; Start 08/02/20 at 12:00 Dextrose (Dextrose 50%-Water Syringe) 12.5 gm PRN Q15MIN PRN IV SEE COMMENTS; Start 08/02/20 at 09:30 Sodium Chloride 1,000 ml @ 100 mls/hr Q10H IV Last administered on 08/06/20 11:55; Start 08/02/20 at 09:30; Stop 08/06/20 at 13:40; Status DC Acetaminophen (Tylenol) 650 mg PRN Q4HRS PRN PO TEMP OVER 100.4F OR MILD PAIN; Start 08/02/20 at 09:30 Metoclopramide HCl (Reglan Vial) 10 mg Q8HRS IVP Last administered on 08/05/20at 14:11; Start 08/02/20 at 11:30; Stop 08/05/20 at 15:54; Status DC Insulin Glargine (Lantus Syringe) 10 unit BID SQ Last administered on 08/06/20 21:42; Start 08/02/20 at 21:00 Al Hydroxide/Mg Hydroxide (Mylanta Plus Xs) 30 ml PRN Q2HR PRN PO HEARTBURN / GAS Last administered on 08/03/20at 11:09; Start 08/03/20 at 11:00 Pantoprazole Sodium (PROTONIX VIAL for IV PUSH) 40 mg DAILYAC IVP ; Start 08/04/20 at 07:30; Stop 08/03/20 at 13:06; Status DC Pantoprazole Sodium (PROTONIX VIAL for IV PUSH) 40 mg DAILYAC IVP Last adm inistered on 08/05/20at 08:35; Start 08/03/20 at 13:15; Stop 08/05/20 at 15:54; Status DC Morphine Sulfate (Morphine Sulfate) 2 mg PRN Q2HR PRN IV MODERATE TO SEVERE PAIN Last administered on 08/07/20 04:57; Start 08/03/20 at 13:15 Metoclopramide HCl (Reglan Vial) 10 mg QIDACHS IVP Last administered on 08/07/20 08:31; Start 08/05/20 at 16:30 Pantoprazole Sodium (PROTONIX VIAL for IV PUSH) 40 mg BIDAC IVP Last administered on 08/07/20 08:32; Start 08/05/20 at 16:30 Polyethylene Glycol (miraLAX PACKET) 17 gm DAILY PO Last administered on 08/07/20 08:31; Start 08/06/20 at 09:00 Bisacodyl (Dulcolax Tab) 5 mg 1X ONCE PO Last administered on 08/05/20at 16:33; Start 08/05/20 at 16:00; Stop 08/05/20 at 16:01; Status DC Hydralazine HCl (Apresoline Inj) 10 mg PRN Q4HRS PRN IVP ELEVATED BP, SEE COMMENTS; Start 08/06/20 at 13:00; Status Cancel Potassium Chloride/Water 100 ml @ 100 mls/hr Q1H IV ; Start 08/06/20 at 13:00; Stop 08/06/20 at 14:59; Status UNV Potassium Chloride/Water 100 ml @ 100 mls/hr Q1H IV Last administered on 08/06/20at 19:20; Start 08/06/20 at 14:00; Stop 08/06/20 at 17:59; Status DC Lisinopril (Prinivil) 10 mg DAILY PO Last administered on 08/06/20at 14:12; Start 08/06/20 at 14:00 Hydralazine HCl (Apresoline Inj) 10 mg PRN Q4HRS PRN IVP ELEVATED BP, SEE COMMENTS; Start 08/06/20 at 13:45 Potassium Chloride/Sodium Chloride 1,000 ml @ 100 mls/hr Q10H IV Last adm inistered on 08/06/20at 23:03; Start 08/06/20 at 14:00 Active Scripts Active Reported Glipizide 5 Mg Tablet 1 Tab PO BID Benadryl (Diphenhydramine Hcl) 25 Mg Capsule 2 Cap PO PRN PRN 30 Days Reglan (Metoclopramide Hcl) 5 Mg Tablet 5 Mg PO QIDACHS Vitals/I & O Vital Sign - Last 24 Hours 08/06/20 08/06/20 08/06/20 08/06/20 09:31 10:05 11:00 14:12 Temp 98.4 98.4 Pulse 83 83 Resp 17 B/P (MAP) 180/77 (111) 180/77 Pulse Ox 95 O2 Delivery Room Air Room Air Room Air 08/06/20 08/06/20 08/06/20 08/06/20 15:00 19:00 20:00 21:35 Temp 99.7 99.3 99.7 99.3 Pulse 78 79 Resp 17 18 B/P (MAP) 166/75 (105) 159/91 (113) Pulse Ox 96 94 94 O2 Delivery Room Air Room Air Room Air Room Air 08/06/20 08/06/20 08/07/20 08/07/20 22:05 23:00 03:00 04:57 Temp 99.2 98.3 99.2 98.3 Pulse 70 76 Resp 18 18 B/P (MAP) 149/78 (101) 154/75 (101) Pulse Ox 94 93 91 91 O2 Delivery Room Air Room Air Room Air Room Air 08/07/20 08/07/20 08/07/20 05:25 07:00 08:40 Temp 97.9 97.9 Pulse 82 82 Resp 18 B/P (MAP) 192/82 (118) 192/82 Pulse Ox 91 98 O2 Delivery Room Air Room Air Intake and Output 08/06/20 08/06/20 08/07/20 15:00 23:00 07:00 Intake Total 100 ml 440 ml 320 ml Balance 100 ml 440 ml 320 ml Justicifation of Admission Dx: Justifications for Admission: Justification of Admission Dx: Yes BEE ROMEO MD Aug 07, 2020 08:43
[2020-08-07] MEDS ORDERED: hydrALAZINE 20 MG/ML VIAL. IVP ONE (09:00)
--- NOTE | 2020-08-07 09:09 | PDOC ---
Date of Service: DATE: 08/07/20 TIME: 09:02 Subjective: Subjective: Not feeling well - "it's a bile morning" - also says interactions w/ staff have been "annoying" - doesn't want a stress test because he's had these symptoms for year, doesn't want his BP checked while he's feeling sick, doesn't want PO meds (names Miralax) while he feels sick. Still has epigastric discomfort. "I've been in the hospital for the better part of a year before with this." Objective: Vital Signs: Vital Signs Date Time Temp Pulse Resp B/P (MAP) Pulse Ox O2 Delivery O2 Flow Rate FiO2 08/07/20 08:40 82 192/82 08/07/20 07:00 97.9 18 98 Room Air 97.9 Labs: Laboratory Tests Test 08/06/20 11:38 08/06/20 17:03 08/06/20 21:19 08/07/20 07:58 Glucose (Fingerstick) 150 mg/dL (70-99) 142 mg/dL (70-99) 164 mg/dL (70-99) 162 mg/dL (70-99) Imaging: [facility] 08/06 IMPRESSION: 1. No acute pulmonary finding. 2. Nonobstructive bowel gas pattern. 3. 1.7 cm nodule overlying the right lung base which is not clearly calcified. This can be better assessed with a chest CT. PE: GEN: NAD LUNGS: CTAB HEART: RRR ABD: quiet BS, large, soft, mild epigastric discomfort NEURO/PSYCH: A & O 3, flat/depressed A/P: N/v, upper abd discomfort - h/o gastroparesis and GERD HTN, DM Right lung nodule - per primary -- Appreciate cardiology eval - pt declines stress test. Making no progress n/v-jackson despite IV Reglan, anti-emetic, PPI. Still taking morphine - we discussed possible adverse effects of this including contribution on n/v and constipation - he says he always takes morphine during flares - defer pain management to primary. ?try e-mycin in place of Reglan ?head imaging ?PICC/TPN ?surgery opinion re: J-tube Justicifation of Admission Dx: Justifications for Admission: Justification of Admission Dx: Yes JULISSA GERARD Aug 07, 2020 09:09
[2020-08-07] MEDS ORDERED: POLYETHYLENE GLYCOL 3350 17 GM PACKET. PO PRN (09:15)
[2020-08-07 11:00] VITALS: BP_SYST 147; BP_SYST 150; BP_DIAS 68; BP_DIAS 81
[2020-08-07] MEDS: INSULIN GLARGINE SYRINGE. SQ SCH ×2 (11:17→21:48)
--- NOTE | 2020-08-07 11:51 | PDOC ---
CARDIO Progress Notes Date and Time Date of Service 08/07/2020 Time of Evaluation 0930 Subjective Subjective: No Chest Pain, No shortness of breath, No Palpitations, Other (still has nausea and vomiting) Vitals Vitals Vital Signs Date Time Temp Pulse Resp B/P (MAP) Pulse Ox O2 Delivery O2 Flow Rate FiO2 08/07/20 08:40 82 192/82 08/07/20 08:00 Room Air 08/07/20 07:00 97.9 18 98 97.9 Weight Weight [ ] Input and Output Intake and Output Intake and Output 08/07/20 07:00 Intake Total 860 ml Balance 860 ml Intake Oral 860 ml # Voids 1 Laboratory Labs Laboratory Tests Test 08/06/20 15:00 08/06/20 17:03 08/06/20 21:19 08/07/20 05:28 Urine Collection Type Unknown Urine Color Yellow Urine Clarity Clear Urine pH 6.5 (<5.0-8.0) Urine Specific [place] 1.020 (1.000-1.030) Urine Protein Negative mg/dL (NEG-TRACE) Urine Glucose (UA) Negative mg/dL (NEG) Urine Ketones (Stick) >=80 mg/dL (NEG) Urine Blood Negative (NEG) Urine Nitrite Negative (NEG) Urine Bilirubin Negative (NEG) Urine Urobilinogen Dipstick 1.0 mg/dL (0.2 mg/dL) Urine Leukocyte Esterase Negative (NEG) Urine RBC 0 /HPF (0-2) Urine WBC 0 /HPF (0-4) Urine Bacteria 0 /HPF (0-FEW) Urine Mucus Mod /LPF Glucose (Fingerstick) 142 mg/dL (70-99) 164 mg/dL (70-99) White Blood Count 11.9 x10^3/uL (4.0-11.0) Red Blood Count 5.37 x10^6/uL (4.30-5.70) Hemoglobin 15.7 g/dL (13.0-17.5) Hematocrit 45.2 % (39.0-53.0) Mean Corpuscular Volume 84 fL (79-100) Mean Corpuscular Hemoglobin 29 pg (25-35) Mean Corpuscular Hemoglobin Concent 35 g/dL (31-37) Red Cell Distribution Width 13.7 % (11.5-14.5) Platelet Count 304 x10^3/uL (140-400) Neutrophils (%) (Auto) 67 % (31-73) Lymphocytes (%) (Auto) 24 % (24-48) Monocytes (%) (Auto) 9 % (0-9) Eosinophils (%) (Auto) 0 % (0-3) Basophils (%) (Auto) 1 % (0-3) Neutrophils # (Auto) 8.0 x10^3/uL (1.8-7.7) Lymphocytes # (Auto) 2.8 x10^3/uL (1.0-4.8) Monocytes # (Auto) 1.0 x10^3/uL (0.0-1.1) Eosinophils # (Auto) 0.0 x10^3/uL (0.0-0.7) Basophils # (Auto) 0.1 x10^3/uL (0.0-0.2) Sodium Level 141 mmol/L (136-145) Potassium Level 3.3 mmol/L (3.5-5.1) Chloride Level 104 mmol/L (98-107) Carbon Dioxide Level 29 mmol/L (21-32) Anion Gap 8 (6-14) Blood Urea Nitrogen 7 mg/dL (8-26) Creatinine 0.9 mg/dL (0.7-1.3) Estimated GFR (Cockcroft-Gault) 89.0 Glucose Level 131 mg/dL (70-99) Calcium Level 8.8 mg/dL (8.5-10.1) Test 08/07/20 07:58 08/07/20 11:33 Glucose (Fingerstick) 162 mg/dL (70-99) 193 mg/dL (70-99) Physical Exam HEENT: Neck Supple W Full Motion Chest: Symmetric LUNGS: Clear to Auscultation Heart: RRR Abdomen: Soft N/T Extremities: No Edema, No Calf Tenderness Neurology: alert, oriented, follow commands Assessment Assessment 1. Nausea/vomiting/abd pain with hx of gastroparesis and GERD. Reports billous vomiting today 2. DM2: A1C 7.6 3. HTN: labile due to refusal to take meds per staff 4. Deconditioning 5. MIld hypokalemia Recommendations Pt has not been having any cardiac symptoms and has a low pretest probability f or ACS. Having said that he does have uncontrolled DM which is a CAD equivalence. He also has low endurance given that he is sedentary and likely deconditioned. I discussed with him about treadmill stress test as an outpt and he does not want to pursue this. He is unable to tolerate ASA due to GI issues. His BP is labile and I will start him on lisinopril. He does not take statin but his lipids are on goal except that HDL is slightly low. Consider low dose statin with its pleiotropic He is presently NPO, hydralazine IV PRN. Abnormal EKG with nonspecific ST-T wave changes. Preliminary TTE with normal EF and WM. Replace K. Nothing further cardiac jackson. Justicifation of Admission Dx: Justifications for Admission: Justification of Admission Dx: Yes ECTOR ARIAS DIRECTOR OF PROMOTIONS Aug 07, 2020 11:51
--- NOTE | 2020-08-07 11:57 | CARD ---
MR#: [id number] Date of Study: 08/07/2020 Ordering Physician: ECTOR ARIAS, Referring Physician: ECTOR ARIAS Tech: Lyric Mcdonald ALCIRA APPROVED REPORT EXAM: Two-dimensional and M-mode echocardiogram with Doppler and color Doppler. Other Information Quality : Fair INDICATION Abnormal ECG Hypertension/HCVD 2D DIMENSIONS RVDd3.8 (2.9-3.5cm)Left Atrium(2D)3.9 (1.6-4.0cm) IVSd1.6 (0.7-1.1cm)Aortic Root(2D)3.2 (2.0-3.7cm) LVDd4.2 (3.9-5.9cm)LVOT Diameter2.2 (1.8-2.4cm) PWd1.4 (0.7-1.1cm)LVDs2.7 (2.5-4.0cm) FS (%) 35.5 %SV52.5 ml LVEF(%)65.4 (>50%) Aortic Valve AoV Peak Freddy.137.5cm/sAoV VTI19.8cm AO Peak GR.7.6mmHgLVOT Peak Freddy.97.5cm/s LVOT VTI 16.16cmAO Mean GR.4mmHg MILIND (VMAX)1.50sf3NEO (VTI)3.13cm2 Mitral Valve MV E Zonzfqvs21.2cm/sMV DECEL [id number] MV A Mbpbxmat20.6cm/sMV XXC85wc E/A Ratio0.7MVA (PHT)5.04cm2 TDI E/Lateral E'5.1E/Medial E'8.9 Tricuspid Valve TR P. Hnbjyboc865wa/sRAP [id number] TR Peak Gr.76jaBbAUHQ74wkFj Pulmonary Vein S1 Drbmqprh80.9cm/sD2 Yjwmdlvr67.7cm/s LEFT VENTRICLE The left ventricle is normal size. There is mild to moderate concentric left ventricular hypertrophy. The left ventricular systolic function is normal. The Ejection Fraction is 55-60%. There is normal L V segmental wall motion. The left ventricular diastolic function and filling is normal for age. RIGHT VENTRICLE The right ventricle is normal size. The right ventricular systolic function is normal. ATRIA The left atrium size is normal. The right atrium size is normal. The interatrial septum is intact wit h no evidence for an atrial septal defect or patent foramen ovale as noted on 2-D or Doppler imaging. AORTIC VALVE The aortic valve is calcified but opens well. Doppler and Color Flow revealed no significant aortic r egurgitation. There is no significant aortic valvular stenosis. MITRAL VALVE The mitral valve is normal in structure and function. There is no evidence of mitral valve prolapse. There is no mitral valve stenosis. Doppler and Color Flow revealed no mitral valve regurgitation note d. TRICUSPID VALVE The tricuspid valve is normal in structure and function. Doppler and Color Flow revealed trace tricus pid regurgitation. The PA pressure was estimated at 23 mmHg. There is no tricuspid valve stenosis. PULMONIC VALVE The pulmonic valve is not well visualized. Doppler and Color Flow revealed mild pulmonic valvular reg urgitation. There is no pulmonic valvular stenosis. GREAT VESSELS The aortic root is normal in size. The ascending aorta is normal in size. The IVC is normal in size a nd collapses >50% with inspiration. PERICARDIAL EFFUSION There is no evidence of significant pericardial effusion. Critical Notification Critical Value: No <Conclusion> The left ventricular systolic function is normal. The Ejection Fraction is 55-60%. There is normal LV segmental wall motion. Trace tricuspid regurgitation. The PA pressure was estimated at 23 mmHg. There is no evidence of significant pericardial effusion. Signed by : Joseph Patel, Electronically Approved : 08/07/2020 11:57:03
[2020-08-07 15:00] VITALS: BP 165/93
[2020-08-07 19:30] VITALS: BP 177/91
[2020-08-07 23:23] VITALS: BP 146/82
[2020-08-08 03:18] VITALS: BP 157/64
[2020-08-08] MEDS: diphenhydrAMINE 50 MG/ML VIAL IVP PRN (04:11)
--- NOTE | 2020-08-08 04:25 | NUR ---
PT VOIDED 350 ,THEN AFTER 4 HOURS PT ATTEMPTED 2 TIMES TO VOID AND WAS UNSUCCESSFUL ,PT BLADDER SCAN ,SHOWED 255 ML . PT RESTING IN BED , BLADDER SCAN AGAIN IF PT UNABLE TO VOID..
[2020-08-08 07:00] VITALS: BP 108/82
[2020-08-08 07:52] LABS: CALCIUM 8.2 mg/dL (8.5-10.1); CREATININE 0.8 mg/dL (0.7-1.3); GFR 101.9; POTASSIUM 3.3 mmol/L (3.5-5.1)
[2020-08-08] MEDS: INSULIN LISPRO 300 UNITS/3 ML VIAL. SQ SCH (08:00)
[2020-08-08] MEDS: PANTOPRAZOLE IV PUSH 40 MG VIAL. IVP SCH (08:40)
[2020-08-08] MEDS: METOCLOPRAMIDE HCL 10 MG/2 ML VIAL. IVP SCH (08:40)
[2020-08-08 08:41] VITALS: BP 178/82
[2020-08-08] MEDS: LISINOPRIL 10 MG TABLET PO SCH (08:41)
--- NOTE | 2020-08-08 08:48 | PDOC ---
PROGRESS NOTES Date of Service: DATE: 08/08/20 TIME: 08:48 Chief Complaint Chief Complaint DISCHARGE DX H/o gastroparesis diagnosed w/ GES at [facility] several years ago. Intractable nausea vomiting Hypertensive urgency Hyperglycemia MORBID OBESITY HYPOKALEMIA Leukocytosis diabetes plan Advance diet as tolerated Continue IV fluids KUB Ambulation for DVT prophylaxis Protonix GI prophylaxis ADA diet Full code Discussed with RN and SW UA CT ABDOMEN iv hydralazine 10 mg q 4 hrs prn bp support IV K REPLACEMENT troponin i Disposition patient management above Surrogate decision maker is undesignated 08-08 left ama D/W RN 08-06 still vomiting, not feeling well, some epigastric pain. No dizziness. D/W mosaicist abd series add iv hydralazine prn IV K Most likely secondary to gastroparesis exacerbation. Medical therapy with prokinetic therapy and anti-emetics. Cardiac evaluation for possible RCA/inferior wall disease also recommended with morning flares. 38 MIN pt exam, chart review, > 50% of time spent with exam, chart review, pt care coordination History of Present Illness History of Present Illness Rule out RCA in relation to indigestion and persistent n/v. 08/07: Afebrile. CARDIOLOGY AND GI CONSULTS. clears Continue with Protonix, Reglan, and Benadryl. Will consult GI for further recommendations. Continue to monitor inpatient and provide supportive care. CT ABD ACUTE ABD SERIES UA, PROCALCITONIN Making no progress n/v-jackson despite IV Reglan, anti-emetic, PPI. D/W RN echo left ventricular systolic function is normal. The Ejection Fraction is 55-60%. echo 08-07: Afebrile. Still with nausea and vomiting this morning. NPO at this time. Continue with Protonix, Reglan, and Benadryl. Will consult GI for further recommendations. Continue to monitor inpatient and provide supportive care. CT ABD ACUTE ABD SERIES UA, PROCALCITONIN 08/05: Afebrile. Still with nausea and vomiting this morning. Had breakfast today consisting of pancakes and sausage. Will change diet to NPO at this time. Continue with Protonix, Reglan, and Benadryl. Will consult GI for further recommendations. Continue to monitor inpatient and provide supportive care. 08/04: Afebrile. Episode of vomiting overnight. States his diet was advanced, feels like food is sitting "like a brick" in his stomach. Continue with Protonix, Reglan, and Benadryl, as patient gets benefit from his medications. If no improvement will consult GI for further recommendations. 08/03: 49 year old male with past medical history of gastroparesis presents with a chief complaint of nausea vomiting and abdominal discomfort. Patient states onset of symptoms 3 days ago. Patient states he is unable to keep any fluids or his medications down. Patient was evaluated and discharge from this emergency department earlier today. Vitals Vitals Vital Signs Date Time Temp Pulse Resp B/P (MAP) Pulse Ox O2 Delivery O2 Flow Rate FiO2 08/08/20 08:41 82 178/82 08/08/20 07:00 98.1 16 96 Room Air 98.1 Physical Exam Physical Exam GEN: NO apparent distress. Alert and oriented HEENT: Normal cephalic, atraumatic, external auditory canals are patent EYES: Extraocular muscles are intact, pupil are equally round and reactive to light and accommodation MUSCULOSKELETAL: Well developed , well nourished, good range of motion ENDOCRINE: No thyromegaly was palpated LYMPHATICS: No cervical chain or axillary nodes were noted HEMATOPOIETIC: No bruising NECK: Supple, no JVD, no thyromegaly was noted LUNGS: Clear to auscultation in all lung colby without rhonchi or wheezing HEART: RRR, S!, S2 present. Peripheral pulses intact, no obvious murmurs noted ABDOMEN: Soft, nontender. Positive bowel sounds, no organomegaly, normal bowel sounds EXTREMITIES: Without clubbing, cyanosis, or edema. Pedal pulses intact. Negative Homans sign NEUROLOGIC: Normal speech and tone. A&O x 3, moves all extremities, no obvious focal deficits PSYCHIATRIC: Normal affect, normal mood. Stable SKIN: No ulcerations or rashes, good skin turgor, no jaundice VASCULAR: Good capillary refill, neurovascular bundle appears to be intact General: Alert, Oriented X3, Cooperative, No acute distress, mild distress Heart: Regular rate (SR), Normal S1, Normal S2, No murmurs Lungs: Clear Abdomen: Normal bowel sounds, Soft, No tenderness Extremities: No cyanosis, No edema Skin: No breakdown, No significant lesion Labs LABS Laboratory Tests Test 08/07/20 11:33 08/07/20 17:09 08/07/20 20:36 08/08/20 05:00 Glucose (Fingerstick) 193 mg/dL (70-99) 170 mg/dL (70-99) 127 mg/dL (70-99) Sodium Level 141 mmol/L (136-145) Potassium Level 3.3 mmol/L (3.5-5.1) Chloride Level 107 mmol/L (98-107) Carbon Dioxide Level 25 mmol/L (21-32) Anion Gap 9 (6-14) Blood Urea Nitrogen 8 mg/dL (8-26) Creatinine 0.8 mg/dL (0.7-1.3) Estimated GFR (Cockcroft-Gault) 101.9 Glucose Level 122 mg/dL (70-99) Calcium Level 8.2 mg/dL (8.5-10.1) Test 08/08/20 07:33 Glucose (Fingerstick) 113 mg/dL (70-99) Assessment and Plan Assessmemt and Plan Problems Medical Problems: (1) Gastroparesis Status: Acute (2) Nausea & vomiting Status: Acute Comment Review of Relevant I have reviewed the following items zonia (where applicable) has been applied. Labs Laboratory Tests Test 08/06/20 11:38 08/06/20 15:00 08/06/20 17:03 08/06/20 21:19 Glucose (Fingerstick) 150 mg/dL (70-99) 142 mg/dL (70-99) 164 mg/dL (70-99) Urine Collection Type Unknown Urine Color Yellow Urine Clarity Clear Urine pH 6.5 (<5.0-8.0) Urine Specific [place] 1.020 (1.000-1.030) Urine Protein Negative mg/dL (NEG-TRACE) Urine Glucose (UA) Negative mg/dL (NEG) Urine Ketones (Stick) >=80 mg/dL (NEG) Urine Blood Negative (NEG) Urine Nitrite Negative (NEG) Urine Bilirubin Negative (NEG) Urine Urobilinogen Dipstick 1.0 mg/dL (0.2 mg/dL) Urine Leukocyte Esterase Negative (NEG) Urine RBC 0 /HPF (0-2) Urine WBC 0 /HPF (0-4) Urine Bacteria 0 /HPF (0-FEW) Urine Mucus Mod /LPF Test 08/07/20 05:28 08/07/20 07:58 08/07/20 11:33 08/07/20 17:09 White Blood Count 11.9 x10^3/uL (4.0-11.0) Red Blood Count 5.37 x10^6/uL (4.30-5.70) Hemoglobin 15.7 g/dL (13.0-17.5) Hematocrit 45.2 % (39.0-53.0) Mean Corpuscular Volume 84 fL (79-100) Mean Corpuscular Hemoglobin 29 pg (25-35) Mean Corpuscular Hemoglobin Concent 35 g/dL (31-37) Red Cell Distribution Width 13.7 % (11.5-14.5) Platelet Count 304 x10^3/uL (140-400) Neutrophils (%) (Auto) 67 % (31-73) Lymphocytes (%) (Auto) 24 % (24-48) Monocytes (%) (Auto) 9 % (0-9) Eosinophils (%) (Auto) 0 % (0-3) Basophils (%) (Auto) 1 % (0-3) Neutrophils # (Auto) 8.0 x10^3/uL (1.8-7.7) Lymphocytes # (Auto) 2.8 x10^3/uL (1.0-4.8) Monocytes # (Auto) 1.0 x10^3/uL (0.0-1.1) Eosinophils # (Auto) 0.0 x10^3/uL (0.0-0.7) Basophils # (Auto) 0.1 x10^3/uL (0.0-0.2) Sodium Level 141 mmol/L (136-145) Potassium Level 3.3 mmol/L (3.5-5.1) Chloride Level 104 mmol/L (98-107) Carbon Dioxide Level 29 mmol/L (21-32) Anion Gap 8 (6-14) Blood Urea Nitrogen 7 mg/dL (8-26) Creatinine 0.9 mg/dL (0.7-1.3) Estimated GFR (Cockcroft-Gault) 89.0 Glucose Level 131 mg/dL (70-99) Calcium Level 8.8 mg/dL (8.5-10.1) Glucose (Fingerstick) 162 mg/dL (70-99) 193 mg/dL (70-99) 170 mg/dL (70-99) Test 08/07/20 20:36 08/08/20 05:00 08/08/20 07:33 Glucose (Fingerstick) 127 mg/dL (70-99) 113 mg/dL (70-99) Sodium Level 141 mmol/L (136-145) Potassium Level 3.3 mmol/L (3.5-5.1) Chloride Level 107 mmol/L (98-107) Carbon Dioxide Level 25 mmol/L (21-32) Anion Gap 9 (6-14) Blood Urea Nitrogen 8 mg/dL (8-26) Creatinine 0.8 mg/dL (0.7-1.3) Estimated GFR (Cockcroft-Gault) 101.9 Glucose Level 122 mg/dL (70-99) Calcium Level 8.2 mg/dL (8.5-10.1) Laboratory Tests Test 08/07/20 11:33 08/07/20 17:09 08/07/20 20:36 08/08/20 05:00 Glucose (Fingerstick) 193 mg/dL (70-99) 170 mg/dL (70-99) 127 mg/dL (70-99) Sodium Level 141 mmol/L (136-145) Potassium Level 3.3 mmol/L (3.5-5.1) Chloride Level 107 mmol/L (98-107) Carbon Dioxide Level 25 mmol/L (21-32) Anion Gap 9 (6-14) Blood Urea Nitrogen 8 mg/dL (8-26) Creatinine 0.8 mg/dL (0.7-1.3) Estimated GFR (Cockcroft-Gault) 101.9 Glucose Level 122 mg/dL (70-99) Calcium Level 8.2 mg/dL (8.5-10.1) Test 08/08/20 07:33 Glucose (Fingerstick) 113 mg/dL (70-99) Medications Current Medications Sodium Chloride 1,000 ml @ 1,000 mls/hr 1X ONCE IV Last administered on 08/01/20at 19:21; Start 08/01/20 at 19:15; Stop 08/01/20 at 20:14; Status DC Metoclopramide HCl (Reglan Vial) 10 mg 1X ONCE IVP Last administered on 08/01/20at 19:23; Start 08/01/20 at 19:15; Stop 08/01/20 at 19:16; Status DC Diphenhydramine HCl (Benadryl) 50 mg 1X ONCE IVP Last administered on 08/01/20at 19:23; Start 08/01/20 at 19:15; Stop 08/01/20 at 19:16; Status DC Pantoprazole Sodium (PROTONIX VIAL for IV PUSH) 40 mg 1X ONCE IVP Last administered on 08/01/20at 19:23; Start 08/01/20 at 19:15; Stop 08/01/20 at 19:16; Status DC Ondansetron HCl (Zofran) 4 mg PRN Q8HRS PRN IV NAUSEA/VOMITING 1ST CHOICE Last administered on 08/02/20at 06:08; Start 08/01/20 at 21:30; Stop 08/02/20 at 09:25; Status DC Morphine Sulfate (Morphine Sulfate) 2 mg PRN Q2HR PRN IV SEVERE PAIN 7-10 Last administered on 08/02/20at 17:03; Start 08/01/20 at 21:30; Stop 08/02/20 at 21:29; Status DC Sodium Chloride 1,000 ml @ 1,000 mls/hr 1X ONCE IV Last administered on 08/01/20at 22:01; Start 08/01/20 at 22:00; Stop 08/01/20 at 22:59; Status DC Metoclopramide HCl (Reglan Vial) 10 mg PRN Q6HRS PRN IVP NAUSEA/VOMITING 2ND CHOICE Last administered on 08/02/20at 07:38; Start 08/01/20 at 23:00; Stop 08/02/20 at 11:09; Status DC Diphenhydramine HCl (Benadryl) 25 mg PRN Q8HRS PRN IVP ITCHING Last admini stered on 08/08/20at 04:11; Start 08/01/20 at 23:00 Sennosides (Senna) 17.2 mg PRN BID PRN PO CONSTIPATION, 2nd CHOICE; Start at 09:30 Docusate Sodium (Colace) 100 mg PRN DAILY PRN PO HARD STOOLS; Start 08/02/20 at 09:30 Ondansetron HCl (Zofran) 4 mg PRN Q6HRS PRN IVP NAUSEA/VOMITING Last administered on 08/06/20at 08:55; Start 08/02/20 at 09:30 Insulin Human Lispro (HumaLOG) 0-5 UNITS TIDWMEALS SQ Last administered on 08/07/20at 17:19; Start 08/02/20 at 12:00 Dextrose (Dextrose 50%-Water Syringe) 12.5 gm PRN Q15MIN PRN IV SEE COMMENTS; Start 08/02/20 at 09:30 Sodium Chloride 1,000 ml @ 100 mls/hr Q10H IV Last administered on 08/06/20at 11:55; Start 08/02/20 at 09:30; Stop 08/06/20 at 13:40; Status DC Acetaminophen (Tylenol) 650 mg PRN Q4HRS PRN PO TEMP OVER 100.4F OR MILD PAIN; Start 08/02/20 at 09:30 Metoclopramide HCl (Reglan Vial) 10 mg Q8HRS IVP Last administered on 08/05/20at 14:11; Start 08/02/20 at 11:30; Stop 08/05/20 at 15:54; Status DC Insulin Glargine (Lantus Syringe) 10 unit BID SQ Last administered on 08/07/20at 21:48; Start 08/02/20 at 21:00 Al Hydroxide/Mg Hydroxide (Mylanta Plus Xs) 30 ml PRN Q2HR PRN PO HEARTBURN / GAS Last administered on 08/03/20at 11:09; Start 08/03/20 at 11:00 Pantoprazole Sodium (PROTONIX VIAL for IV PUSH) 40 mg DAILYAC IVP ; Start 08/04/20 at 07:30; Stop 08/03/20 at 13:06; Status DC Pantoprazole Sodium (PROTONIX VIAL for IV PUSH) 40 mg DAILYAC IVP Last administered on 08/05/20at 08:35; Start 08/03/20 at 13:15; Stop 08/05/20 at 15:54; Status DC Morphine Sulfate (Morphine Sulfate) 2 mg PRN Q2HR PRN IV MODERATE TO SEVERE PAIN Last administered on 08/07/20at 12:16; Start 08/03/20 at 13:15 Metoclopramide HCl (Reglan Vial) 10 mg QIDACHS IVP Last administered on 08/08/20at 08:40; Start 08/05/20 at 16:30 Pantoprazole Sodium (PROTONIX VIAL for IV PUSH) 40 mg BIDAC IVP Last administered on 08/08/20at 08:40; Start 08/05/20 at 16:30 Polyethylene Glycol (miraLAX PACKET) 17 gm DAILY PO Last administered on 08/07/20at 08:31; Start 08/06/20 at 09:00; Stop 08/07/20 at 09:10; Status DC Bisacodyl (Dulcolax Tab) 5 mg 1X ONCE PO Last administered on 08/05/20at 16:33; Start 08/05/20 at 16:00; Stop 08/05/20 at 16:01; Status DC Hydralazine HCl (Apresoline Inj) 10 mg PRN Q4HRS PRN IVP ELEVATED BP, SEE COMMENTS; Start 08/06/20 at 13:00; Status Cancel Potassium Chloride/Water 100 ml @ 100 mls/hr Q1H IV ; Start 08/06/20 at 13:00; Stop 08/06/20 at 14:59; Status UNV Potassium Chloride/Water 100 ml @ 100 mls/hr Q1H IV Last administered on 08/06/20at 19:20; Start 08/06/20 at 14:00; Stop 08/06/20 at 17:59; Status DC Lisinopril (Prinivil) 10 mg DAILY PO Last administered on 08/06/20at 14:12; Start 08/06/20 at 14:00 Hydralazine HCl (Apresoline Inj) 10 mg PRN Q4HRS PRN IVP ELEVATED BP, SEE COMMENTS; Start 08/06/20 at 13:45 Potassium Chloride/Sodium Chloride 1,000 ml @ 100 mls/hr Q10H IV Last administered on 08/08/20at 02:09; Start 08/06/20 at 14:00 Hydralazine HCl (Apresoline Inj) 10 mg 1X ONCE IVP ; Start 08/07/20 at 09:00; Stop 08/07/20 at 09:01; Status DC Polyethylene Glycol (miraLAX PACKET) 17 gm DAILY PRN PO CONSTIPATION, 1st CHOICE; Start 08/07/20 at 09:15 Active Scripts Active Reported Glipizide 5 Mg Tablet 1 Tab PO BID Benadryl (Diphenhydramine Hcl) 25 Mg Capsule 2 Cap PO PRN PRN 30 Days Reglan (Metoclopramide Hcl) 5 Mg Tablet 5 Mg PO QIDACHS Vitals/I & O Vital Sign - Last 24 Hours 08/07/20 08/07/20 08/07/20 08/07/20 11:00 15:00 19:30 20:00 Temp 98.2 98.1 98.0 98.2 98.1 98.0 Pulse 77 80 72 Resp 18 18 18 B/P (MAP) 147/68 (94) 165/93 (117) 177/91 (119) Pulse Ox 96 98 96 O2 Delivery Room Air Room Air Room Air Room Air 08/07/20 08/08/20 08/08/20 08/08/20 23:23 03:18 07:00 08:41 Temp 99.0 98.9 98.1 99.0 98.9 98.1 Pulse 73 81 73 82 Resp 18 20 16 B/P (MAP) 146/82 (103) 157/64 (95) 108/82 (91) 178/82 Pulse Ox 94 92 96 O2 Delivery Room Air Room Air Room Air Intake and Output 08/07/20 08/07/20 08/08/20 14:59 22:59 06:59 Intake Total 480 ml 600 ml Balance 480 ml 600 ml Justicifation of Admission Dx: Justifications for Admission: Justification of Admission Dx: Yes BEE ROMEO MD Aug 08, 2020 08:48
[2020-08-08] MEDS: INSULIN GLARGINE SYRINGE. SQ SCH (08:53)
--- NOTE | 2020-08-08 09:55 | NUR ---
Pt is requesting to leave and said he will discharge himself. Was spoke to on waiting for Dr. Cullen to assess him. Dr. Cullen was notified and will be up to assess and speak with pt.
--- NOTE | 2020-08-08 09:56 | PDOC ---
Date of Service: DATE: 08/08/20 TIME: 09:48 Subjective: Subjective: Dissatisfied with many things but doesn't specify except he had to ask more than once for more jello. Wants more than clears - says he'll keep vomiting if he isn't able to put more in his stomach. We talked about transitioning off IV medications - "well you might as well just cut me loose then." Objective: Vital Signs: Vital Signs Date Time Temp Pulse Resp B/P (MAP) Pulse Ox O2 Delivery O2 Flow Rate FiO2 08/08/20 08:41 82 178/82 08/08/20 07:00 98.1 16 96 Room Air 98.1 Labs: Laboratory Tests Test 08/07/20 11:33 08/07/20 17:09 08/07/20 20:36 08/08/20 07:33 Glucose (Fingerstick) 193 mg/dL (70-99) 170 mg/dL (70-99) 127 mg/dL (70-99) 113 mg/dL (70-99) PE: GEN: NAD - sitting on edge of bed - clear liquid LUNGS: room air ABD: non-distended NEURO/PSYCH: A & O 3 A/P: Gastroparesis flare HTN, DM -- Grumpy today. I think n/v have improved - he's asking for more to eat. Hesitant to stop IV medications but seems to want to discharge. Had cardiology eval - declined stress test. Has ongoing complaints which are difficult to clarify. Advance diet, try PO meds, DC per primary. Follow-up w/ established GI at [facility] where previous work-up for n/v has been done. Justicifation of Admission Dx: Justifications for Admission: Justification of Admission Dx: Yes JULISSA GERARD Aug 08, 2020 09:56
--- NOTE | 2020-08-08 11:22 | NUR ---
SW following. Discussed with RN, pt left AMA. No further SW needs.
--- NOTE | 2020-08-08 11:22 | PDOC3 ---
Discharge Summary Date of Admission: Aug 02, 2020 Date of Discharge: Aug 08, 2020 Follow-Up: Other (LEFT AMA) Admitting Diagnosis comment: DISCHARGE DX H/o gastroparesis diagnosed w/ GES at [facility] several years ago. Intractable nausea vomiting Hypertensive urgency Hyperglycemia MORBID OBESITY HYPOKALEMIA Leukocytosis diabetes plan Advance diet as tolerated Continue IV fluids KUB Ambulation for DVT prophylaxis Protonix GI prophylaxis ADA diet Full code Discussed with RN and SW UA CT ABDOMEN iv hydralazine 10 mg q 4 hrs prn bp support IV K REPLACEMENT troponin i Disposition patient management above Surrogate decision maker is undesignated 08-08 left ama D/W RN 08-06 still vomiting, not feeling well, some epigastric pain. No dizziness. D/W preschool teacher assistant abd series add iv hydralazine prn IV K Most likely secondary to gastroparesis exacerbation. Medical therapy with prokinetic therapy and anti-emetics. Cardiac evaluation for possible RCA/inferior wall disease also recommended with morning flares. 38 MIN pt exam, chart review, > 50% of time spent with exam, chart review, pt care coordination History of Present Illness History of Present Illness Rule out RCA in relation to indigestion and persistent n/v. 08/07: Afebrile. CARDIOLOGY AND GI CONSULTS. clears Continue with Protonix, Reglan, and Benadryl. Will consult GI for further recommendations. Continue to monitor inpatient and provide supportive care. CT ABD ACUTE ABD SERIES UA, PROCALCITONIN Making no progress n/v-jackson despite IV Reglan, anti-emetic, PPI. D/W RN echo left ventricular systolic function is normal. The Ejection Fraction is 55-60%. echo 08-07: Afebrile. Still with nausea and vomiting this morning. NPO at this time. Continue with Protonix, Reglan, and Benadryl. Will consult GI for further recommendations. Continue to monitor inpatient and provide supportive care. CT ABD ACUTE ABD SERIES UA, PROCALCITONIN 08/05: Afebrile. Still with nausea and vomiting this morning. Had breakfast today consisting of pancakes and sausage. Will change diet to NPO at this time. Continue with Protonix, Reglan, and Benadryl. Will consult GI for further recommendations. Continue to monitor inpatient and provide supportive care. 08/04: Afebrile. Episode of vomiting overnight. States his diet was advanced, feels like food is sitting "like a brick" in his stomach. Continue with Protonix, Reglan, and Benadryl, as patient gets benefit from his medications. If no improvement will consult GI for further recommendations. 08/03: 49 year old male with past medical history of gastroparesis presents with a chief complaint of nausea vomiting and abdominal discomfort. Patient states onset of symptoms 3 days ago. Patient states he is unable to keep any fluids or his medications down. Patient was evaluated and discharge from this emergency department earlier today. Vitals Vitals Vital Signs Date Time Temp Pulse Resp B/P (MAP) Pulse Ox O2 Delivery O2 Flow Rate FiO2 08/08/20 08:41 82 178/82 08/08/20 07:00 98.1 16 96 Room Air 98.1 Physical Exam Physical Exam GEN: NO apparent distress. Alert and oriented HEENT: Normal cephalic, atraumatic, external auditory canals are patent EYES: Extraocular muscles are intact, pupil are equally round and reactive to light and accommodation MUSCULOSKELETAL: Well developed , well nourished, good range of motion ENDOCRINE: No thyromegaly was palpated LYMPHATICS: No cervical chain or axillary nodes were noted HEMATOPOIETIC: No bruising NECK: Supple, no JVD, no thyromegaly was noted LUNGS: Clear to auscultation in all lung colby without rhonchi or wheezing HEART: RRR, S!, S2 present. Peripheral pulses intact, no obvious murmurs noted ABDOMEN: Soft, nontender. Positive bowel sounds, no organomegaly, normal bow el sounds EXTREMITIES: Without clubbing, cyanosis, or edema. Pedal pulses intact. Negative Homans sign NEUROLOGIC: Normal speech and tone. A&O x 3, moves all extremities, no obvious focal deficits PSYCHIATRIC: Normal affect, normal mood. Stable SKIN: No ulcerations or rashes, good skin turgor, no jaundice VASCULAR: Good capillary refill, neurovascular bundle appears to be intact General: Alert, Oriented X3, Cooperative, No acute distress, mild distress Heart: Regular rate (SR), Normal S1, Normal S2, No murmurs Lungs: Clear Abdomen: Normal bowel sounds, Soft, No tenderness Extremities: No cyanosis, No edema Skin: No breakdown, No significant lesion FINAL DIAGNOSIS Problems Medical Problems: (1) Gastroparesis Status: Acute (2) Nausea & vomiting Status: Acute Brief Hospital Course Mr. Atwood is a 49 old [sex] who presented with [ ] CONDITION AT DISCHARGE: Comment (LEFT AMA) Discharge Medications Current Medications Sodium Chloride 1,000 ml @ 1,000 mls/hr 1X ONCE IV Last administered on 08/01/20at 19:21; Start 08/01/20 at 19:15; Stop 08/01/20 at 20:14; Status DC Metoclopramide HCl (Reglan Vial) 10 mg 1X ONCE IVP Last administered on 08/01/20at 19:23; Start 08/01/20 at 19:15; Stop 08/01/20 at 19:16; Status DC Diphenhydramine HCl (Benadryl) 50 mg 1X ONCE IVP Last administered on at 19:23; Start 08/01/20 at 19:15; Stop 08/01/20 at 19:16; Status DC Pantoprazole Sodium (PROTONIX VIAL for IV PUSH) 40 mg 1X ONCE IVP Last administered on 08/01/20at 19:23; Start 08/01/20 at 19:15; Stop 08/01/20 at 19:16; Status DC Ondansetron HCl (Zofran) 4 mg PRN Q8HRS PRN IV NAUSEA/VOMITING 1ST CHOICE Last administered on 08/02/20at 06:08; Start 08/01/20 at 21:30; Stop 08/02/20 at 09:25; Status DC Morphine Sulfate (Morphine Sulfate) 2 mg PRN Q2HR PRN IV SEVERE PAIN 7-10 Last administered on 08/02/20at 17:03; Start 08/01/20 at 21:30; Stop 08/02/20 at 21:29; Status DC Sodium Chloride 1,000 ml @ 1,000 mls/hr 1X ONCE IV Last administered on 08/01/20at 22:01; Start 08/01/20 at 22:00; Stop 08/01/20 at 22:59; Status DC Metoclopramide HCl (Reglan Vial) 10 mg PRN Q6HRS PRN IVP NAUSEA/VOMITING 2ND CHOICE Last administered on 08/02/20at 07:38; Start 08/01/20 at 23:00; Stop 08/02/20 at 11:09; Status DC Diphenhydramine HCl (Benadryl) 25 mg PRN Q8HRS PRN IVP ITCHING Last administered on 08/08/20at 04:11; Start 08/01/20 at 23:00 Sennosides (Senna) 17.2 mg PRN BID PRN PO CONSTIPATION, 2nd CHOICE; Start 08/02/20 at 09:30 Docusate Sodium (Colace) 100 mg PRN DAILY PRN PO HARD STOOLS; Start 08/02/20 at 09:30 Ondansetron HCl (Zofran) 4 mg PRN Q6HRS PRN IVP NAUSEA/VOMITING Last administered on 08/06/20at 08:55; Start 08/02/20 at 09:30 Insulin Human Lispro (HumaLOG) 0-5 UNITS TIDWMEALS SQ Last administered on 08/07/20at 17:19; Start 08/02/20 at 12:00 Dextrose (Dextrose 50%-Water Syringe) 12.5 gm PRN Q15MIN PRN IV SEE COMMENTS; Start 08/02/20 at 09:30 Sodium Chloride 1,000 ml @ 100 mls/hr Q10H IV Last administered on 08/06/20at 11:55; Start 08/02/20 at 09:30; Stop 08/06/20 at 13:40; Status DC Acetaminophen (Tylenol) 650 mg PRN Q4HRS PRN PO TEMP OVER 100.4F OR MILD PAIN; Start 08/02/20 at 09:30 Metoclopramide HCl (Reglan Vial) 10 mg Q8HRS IVP Last administered on 08/05/20at 14:11; Start 08/02/20 at 11:30; Stop 08/05/20 at 15:54; Status DC Insulin Glargine (Lantus Syringe) 10 unit BID SQ Last administered on 08/08/20 08:53; Start 08/02/20 at 21:00 Al Hydroxide/Mg Hydroxide (Mylanta Plus Xs) 30 ml PRN Q2HR PRN PO HEARTBURN / GAS Last administered on 4/25/21at 11:09; Start 08/03/20 at 11:00 Pantoprazole Sodium (PROTONIX VIAL for IV PUSH) 40 mg DAILYAC IVP ; Start at 07:30; Stop 08/03/20 at 13:06; Status DC Pantoprazole Sodium (PROTONIX VIAL for IV PUSH) 40 mg DAILYAC IVP Last admin istered on 08/05/20at 08:35; Start 08/03/20 at 13:15; Stop 08/05/20 at 15:54; Status DC Morphine Sulfate (Morphine Sulfate) 2 mg PRN Q2HR PRN IV MODERATE TO SEVERE PAIN Last administered on 08/07/20at 12:16; Start 08/03/20 at 13:15 Metoclopramide HCl (Reglan Vial) 10 mg QIDACHS IVP Last administered on 08/08/20at 08:40; Start 08/05/20 at 16:30; Stop 08/08/20 at 10:08; Status DC Pantoprazole Sodium (PROTONIX VIAL for IV PUSH) 40 mg BIDAC IVP Last administered on 08/08/20at 08:40; Start 08/05/20 at 16:30; Stop 08/08/20 at 10:08; Status DC Polyethylene Glycol (miraLAX PACKET) 17 gm DAILY PO Last administered on 08/07/20at 08:31; Start 08/06/20 at 09:00; Stop 08/07/20 at 09:10; Status DC Bisacodyl (Dulcolax Tab) 5 mg 1X ONCE PO Last administered on 08/05/20at 16:33; Start 08/05/20 at 16:00; Stop 08/05/20 at 16:01; Status DC Hydralazine HCl (Apresoline Inj) 10 mg PRN Q4HRS PRN IVP ELEVATED BP, SEE COMMENTS; Start 08/06/20 at 13:00; Status Cancel Potassium Chloride/Water 100 ml @ 100 mls/hr Q1H IV ; Start 08/06/20 at 13:00; Stop 08/06/20 at 14:59; Status UNV Potassium Chloride/Water 100 ml @ 100 mls/hr Q1H IV Last administered on 08/06/20at 19:20; Start 08/06/20 at 14:00; Stop 08/06/20 at 17:59; Status DC Lisinopril (Prinivil) 10 mg DAILY PO Last administered on 08/06/20at 14:12; Start 08/06/20 at 14:00 Hydralazine HCl (Apresoline Inj) 10 mg PRN Q4HRS PRN IVP ELEVATED BP, SEE COM MENTS; Start 08/06/20 at 13:45 Potassium Chloride/Sodium Chloride 1,000 ml @ 100 mls/hr Q10H IV Last administered on 08/08/20at 02:09; Start 08/06/20 at 14:00 Hydralazine HCl (Apresoline Inj) 10 mg 1X ONCE IVP ; Start 08/07/20 at 09:00; Stop 08/07/20 at 09:01; Status DC Polyethylene Glycol (miraLAX PACKET) 17 gm DAILY PRN PO CONSTIPATION, 1st CHOICE; Start 08/07/20 at 09:15 Metoclopramide HCl (Reglan Oral Solution) 10 mg QIDACHS PO ; Start 08/08/20 at 11:30 Pantoprazole Sodium (Protonix) 40 mg BIDAC PO ; Start 08/08/20 at 16:30 Active Scripts Active Reported Glipizide 5 Mg Tablet 1 Tab PO BID Benadryl (Diphenhydramine Hcl) 25 Mg Capsule 2 Cap PO PRN PRN 30 Days Reglan (Metoclopramide Hcl) 5 Mg Tablet 5 Mg PO QIDACHS Vital Signs Vital Signs Date Time Temp Pulse Resp B/P (MAP) Pulse Ox O2 Delivery O2 Flow Rate FiO2 08/08/20 08:41 82 178/82 08/08/20 07:00 98.1 16 96 Room Air 98.1 Labs Laboratory Tests Test 08/06/20 11:38 08/06/20 15:00 08/06/20 17:03 08/06/20 21:19 Glucose (Fingerstick) 150 mg/dL (70-99) 142 mg/dL (70-99) 164 mg/dL (70-99) Urine Collection Type Unknown Urine Color Yellow Urine Clarity Clear Urine pH 6.5 (<5.0-8.0) Urine Specific [place] 1.020 (1.000-1.030) Urine Protein Negative mg/dL (NEG-TRACE) Urine Glucose (UA) Negative mg/dL (NEG) Urine Ketones (Stick) >=80 mg/dL (NEG) Urine Blood Negative (NEG) Urine Nitrite Negative (NEG) Urine Bilirubin Negative (NEG) Urine Urobilinogen Dipstick 1.0 mg/dL (0.2 mg/dL) Urine Leukocyte Esterase Negative (NEG) Urine RBC 0 /HPF (0-2) Urine WBC 0 /HPF (0-4) Urine Bacteria 0 /HPF (0-FEW) Urine Mucus Mod /LPF Test 08/07/20 05:28 08/07/20 07:58 08/07/20 11:33 08/07/20 17:09 White Blood Count 11.9 x10^3/uL (4.0-11.0) Red Blood Count 5.37 x10^6/uL (4.30-5.70) Hemoglobin 15.7 g/dL (13.0-17.5) Hematocrit 45.2 % (39.0-53.0) Mean Corpuscular Volume 84 fL (79-100) Mean Corpuscular Hemoglobin 29 pg (25-35) Mean Corpuscular Hemoglobin Concent 35 g/dL (31-37) Red Cell Distribution Width 13.7 % (11.5-14.5) Platelet Count 304 x10^3/uL (140-400) Neutrophils (%) (Auto) 67 % (31-73) Lymphocytes (%) (Auto) 24 % (24-48) Monocytes (%) (Auto) 9 % (0-9) Eosinophils (%) (Auto) 0 % (0-3) Basophils (%) (Auto) 1 % (0-3) Neutrophils # (Auto) 8.0 x10^3/uL (1.8-7.7) Lymphocytes # (Auto) 2.8 x10^3/uL (1.0-4.8) Monocytes # (Auto) 1.0 x10^3/uL (0.0-1.1) Eosinophils # (Auto) 0.0 x10^3/uL (0.0-0.7) Basophils # (Auto) 0.1 x10^3/uL (0.0-0.2) Sodium Level 141 mmol/L (136-145) Potassium Level 3.3 mmol/L (3.5-5.1) Chloride Level 104 mmol/L (98-107) Carbon Dioxide Level 29 mmol/L (21-32) Anion Gap 8 (6-14) Blood Urea Nitrogen 7 mg/dL (8-26) Creatinine 0.9 mg/dL (0.7-1.3) Estimated GFR (Cockcroft-Gault) 89.0 Glucose Level 131 mg/dL (70-99) Calcium Level 8.8 mg/dL (8.5-10.1) Glucose (Fingerstick) 162 mg/dL (70-99) 193 mg/dL (70-99) 170 mg/dL (70-99) Test 08/07/20 20:36 08/08/20 05:00 08/08/20 07:33 Glucose (Fingerstick) 127 mg/dL (70-99) 113 mg/dL (70-99) Sodium Level 141 mmol/L (136-145) Potassium Level 3.3 mmol/L (3.5-5.1) Chloride Level 107 mmol/L (98-107) Carbon Dioxide Level 25 mmol/L (21-32) Anion Gap 9 (6-14) Blood Urea Nitrogen 8 mg/dL (8-26) Creatinine 0.8 mg/dL (0.7-1.3) Estimated GFR (Cockcroft-Gault) 101.9 Glucose Level 122 mg/dL (70-99) Calcium Level 8.2 mg/dL (8.5-10.1) Laboratory Tests Test 08/07/20 11:33 08/07/20 17:09 08/07/20 20:36 08/08/20 05:00 Glucose (Fingerstick) 193 mg/dL (70-99) 170 mg/dL (70-99) 127 mg/dL (70-99) Sodium Level 141 mmol/L (136-145) Potassium Level 3.3 mmol/L (3.5-5.1) Chloride Level 107 mmol/L (98-107) Carbon Dioxide Level 25 mmol/L (21-32) Anion Gap 9 (6-14) Blood Urea Nitrogen 8 mg/dL (8-26) Creatinine 0.8 mg/dL (0.7-1.3) Estimated GFR (Cockcroft-Gault) 101.9 Glucose Level 122 mg/dL (70-99) Calcium Level 8.2 mg/dL (8.5-10.1) Test 08/08/20 07:33 Glucose (Fingerstick) 113 mg/dL (70-99) Allergies Allergies Coded Allergies Type Severity Reaction Last Updated Verified aspirin Adverse Reaction Severe STOMACH BLEEDING 08/07/20 Yes Disposition/Orders: Other (LEFT ama) Justicifation of Admission Dx: Justifications for Admission: Justification of Admission Dx: Yes BEE ROMEO MD Aug 08, 2020 11:22
--- NOTE | 2020-08-08 11:24 | NUR ---
Pt left AMA without notifying staff that he was leaving. He was last seen at approx. 0945 in his room. This automobile and property underwriter went into his room at 1115 to inform him of diet change to a full liquid diet, his IV was laying on the bed and he was not in his room. Dr. Cullen was notified at 1120, supervisor area was notified at 1125, Pt did not have a DPOA or a contact to notify.
[2020-08-08] MEDS ORDERED: METOCLOPRAMIDE ORAL SOLN 10 MG/10 ML SOLUTION. PO SCH (11:30)
[2020-08-08] MEDS ORDERED: PANTOPRAZOLE 40 MG TABLET.DR. PO SCH (16:30)
== END 2020-08-08 10:15 | disposition left against medical advice (07) | DRG 74 ==
LOC: ER 18:22 → 4 NORTH 20:31 → OBSVTOIN 08-02 20:41
PROVIDERS: ADMIT Family Medicine; ATTEND Family Medicine
DX: E11.43 Type 2 diabetes mellitus with diabetic autonomic (poly)neuropathy (principal); K31.84 Gastroparesis; I16.0 Hypertensive urgency; E11.65 Type 2 diabetes mellitus with hyperglycemia; D72.829 Elevated white blood cell count, unspecified; E66.01 Morbid (severe) obesity due to excess calories; E87.6 Hypokalemia; I10 Essential (primary) hypertension; I25.10 Atherosclerotic heart disease of native coronary artery without angina pectoris; J45.909 Unspecified asthma, uncomplicated; K21.9 Gastro-esophageal reflux disease without esophagitis; Z90.49 Acquired absence of other specified parts of digestive tract; M19.90 Unspecified osteoarthritis, unspecified site; Z68.35 Body mass index [BMI] 35.0-35.9, adult; Z88.8 Allergy status to other drugs, medicaments and biological substances
CPT/HCPCS: 36415; 74018; 74022; 80048; 80053; 80061; 81001; 82962; 83036; 83690; 83735; 84100; 84145; 84443; 84484; 85007; 85025; 85027; 93005; 93306; 96361; 96374; 96375; 99285; C9113; G0378; G0379; J1200; J1815; J2270; J2405; J2765; J3480; J7030